=== PATIENT | female | born 1935 | race Caucasian/White ===

== ENCOUNTER 2020-01-02 16:42 | Inpatient (IN) ==
[2020-01-02] MEDS ORDERED: SODIUM CHLORIDE 0.9% 1000ML 500 ML IV ONE (17:07)
--- NOTE | 2020-01-02 17:25 | XRay Report ---
SINGLE VIEW CHEST CLINICAL HISTORY: Left-sided weakness. FINDINGS: An AP, portable, upright chest semierect is obtained No prior studies are available for fareed sharma at the time of dictation. The examination is degraded by portable technique, apical lordotic positioning, and patient rotation. The heart is enlarged noting atherosclerotic calcification of the thoracic aorta. The pulmonary vasculature is noncongested. Airspace consolidation is seen in the left lung base. No large pleural effusion or pneumothorax is seen. The skeletal structures are osteopenic . There are healed left-sided rib fractures. IMPRESSION: 1. Cardiomegaly without radiographic evidence of congestive failure. 2. Airspace consolidation is seen at the left lung base. This could represent atelectasis versus an i nfectious/inflammatory pneumonitis. Clinical correlation will be required. ACT 112: Negative or not required by law. Electronically signed by: Clay Rosado M.D. 01/02/2020 5:24 PM
[2020-01-02 18:09] LABS: Mean Corpuscular Hgb Conc 34.7 g/dL (32-36); Mean Platelet Volume 10.6 fL (7.4-10.4); Platelet Count 161 K/uL (130-400)
[2020-01-02 18:11] LABS: iSTAT Creatinine 0.4 mg/dl (0.6-1.3); iSTAT Hemoglobin 13.9 g/dl (12.0-16.0); iSTAT Ionized Calcium 1.14 mmol/l (1.12-1.32); iSTAT Potassium 3.6 mmol/L (3.3-5.0)
[2020-01-02 18:19] LABS: INR 1.1 (0.9-1.1); Partial Thromboplastin Time 28.4 Seconds (21.0-31.0); Prothrombin Time 11.7 Seconds (9.0-12.0)
[2020-01-02] MEDS ORDERED: OPTIRAY 320 125ml IV PRN (18:19)
[2020-01-02 18:40] LABS: Alanine Aminotransferase 24 U/L (12-78); Albumin Level 3.5 gm/dl (3.4-5.0); Aspartate Aminotransferase 25 U/L (15-37); BUN Creatinine Ratio 8.7 (10-20); Blood Urea Nitrogen 6 mg/dl (7-18); Calcium 8.9 mg/dl (8.5-10.1); Carbon Dioxide 27 mmol/L (21-32); Chloride 100 mmol/L (98-107); Creatinine Clr Calc Pharmacy 69.6 ml/min; Est GFR (African American) 94.9; Est GFR (Non-African American) 81.9; Glucose 210 mg/dl (70-99); Magnesium 1.9 mg/dl (1.8-2.4); Potassium 3.6 mmol/L (3.5-5.1); Sodium 134 mmol/L (136-145)
--- NOTE | 2020-01-02 18:40 | CT Scan Report ---
HEAD CT NONCONTRAST CT DOSE: HISTORY: Altered mental status. Stroke evaluation TECHNIQUE: Multiaxial CT images of the head were performed without the use of intravenous contrast. A utomated exposure control was utilized for this study. A dose lowering technique was utilized adheri ng to the principles of ALARA. Comparison: None. Findings: The paranasal sinuses and mastoid air cells are clear. The calvarium and skull base are int act. There is no mass, hematoma, midline shift, acute infarct. White matter hypodensity is nonspecifi c but suggestive of microvascular ischemic change. The ventricles and sulci demonstrate mild age-rela drew involutional changes. Hypodensity seen within the right frontal lobe measuring approximately 6 cm in size. This favors a subacute to chronic right MCA territory infarct. Old lacunar infarcts seen wi thin the left basal ganglia. There is no mass, hematoma, midline shift. 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 ACT 112: Negative or not required by law. Electronically signed by: Jean Govea M.D. 01/02/2020 6:39 PM
[2020-01-02 18:41] LABS: Hematocrit (blood only) 38.6 % (37-47); Hemoglobin 13.4 g/dL (12.0-16.0); Mean Corpuscular Volume 89.4 fL (80-100); RDW Standard Deviation 39.4 fL (36.4-46.3); Red Blood Count 4.32 M/uL (4.2-5.4); White Blood Count 14.76 K/uL (4.8-10.8)
[2020-01-02 18:44] LABS: ANC (manual) 9.42 K/uL (1.4-6.5); Lymphocytes % (manual) 3.4 %; Monocytes # (manual) 4.84 K/uL (0.11-0.59); Monocytes % (manual) 32.8 %; Neutrophils # (manual) 9.42 K/uL (1.4-6.5); Neutrophils % (manual) 63.8 %
[2020-01-02 18:45] LABS: Albumin Globulin Ratio 0.7 (0.9-2); Alkaline Phosphatase 81 U/L (45-117); Creatine Kinase 124 U/L (26-192); Globulin 4.7 gm/dl (2.5-4.0); Total Protein 8.2 gm/dl (6.4-8.2); Troponin I < 0.015 ng/ml (0-0.045)
--- NOTE | 2020-01-02 18:50 | CT Scan Report ---
HEAD & NECK CTA HISTORY: Altered mental status Stroke evaluation TECHNIQUE: Multiaxial CT images of the head were performed following the intravenous administration o f contrast to evaluate the major cerebral vessels. Multiaxial CT images of the neck were also perform ed following the intravenous administration of contrast to evaluate the major cervical vessels. Maxim um intensity projection images were also obtained. A dose lowering technique was utilized adhering to the principles of ALARA. COMPARISON: Head CT 01/02/2020. FINDINGS: Redemonstration of the 6 cm hypodense region within the right frontal lobe. This favors a subacute to chronic right MCA territory infarct. The major dural venous sinuses appear patent. Advanced atherosc lerotic plaque within the bilateral carotid siphons. Hypoplastic distal right vertebral artery. The d istal vertebral arteries, basilar artery, and bilateral intracranial internal carotid arteries are pa tent. Persistent right posterior circulation which is considered to be a normal variant. The bi lateral ACAs, wet process head miller, left MCA are widely patent. Focal high-grade stenosis involving a 1 cm segment of the proximal right M2 segment. This involves the superior branch and is best seen on image 93 of 245 . The aortic arch and proximal great vessels are widely patent. There is no significant stenosis, occ lusion, or dissection identified within the bilateral common carotid, internal carotid, or vertebral arteries. Faint patchy groundglass densities within the left upper lobe. Moderate calcified plaque wi thin the aortic arch. Mild to moderate calcified plaque within the bilateral carotid bifurcations. Sl ight irregular appearance of the bilateral mid vertebral arteries favors the tortuosity of the vessel s given the relative symmetry. IMPRESSION: 1. High-grade stenosis involving the proximal 1 cm of the superior division of the right M2 segment. This may account for the suspected right MCA territory subacute to chronic infarct. 2. No significant stenosis, occlusion, or dissection identified within the carotid or vertebral arter ies. 3. Faint patchy groundglass densities within the left upper lobe. This could represent a mild inflamm atory/infectious process such as a viral pneumonia. ACT 112: Negative or not required by law. Electronically signed by: Jean Govea M.D. 01/02/2020 6:49 PM
[2020-01-02 19:06] LABS: Appearance Urine Clear (Clear); Bacteria Urine Automated Negative (Negative); Bilirubin Urine Negative (Negative); Blood Urine Trace (Negative); Color Urine Yellow; Epithelial Cell Urine Auto >30 /lpf (0-5); Glucose Urine UA 3+ (Negative); Ketones Urine Trace (Negative); Leukocyte Esterase Urine Negative (Negative); Nitrite Urine Negative (Negative); Protein Urine Trace (Negative); RBC Urine Automated 0-4 /hpf (0-4); Specific Gravity Urine > 1.045 (1.000-1.030); Urobilinogen Urine Negative (Negative); pH Urine 6.5 (4.5-7.5)
[2020-01-02] MEDS ORDERED: PIPERACILLIN/TAZOBACTAM 4.5 GM/120 ML BAG IV ONE (19:25)
[2020-01-02] MEDS ORDERED: PIPERACILL/TAZOBAC CONSULT ACTIVE PRN (19:25)
[2020-01-02] MEDS ORDERED: LEVOFLOXACIN/D5W 750 MG/150 ML BAG IV SCH (19:30)
--- NOTE | 2020-01-02 20:44 | XRay Report ---
XR forearm LT 2V, XR humerus LT 2V CLINICAL HISTORY: Pt c/o left forearm pain. Left upper arm pain. COMPARISON STUDY: None. FINDINGS: Dorsal soft tissue swelling within the distal forearm. No fracture or dislocation within th e left humerus or left forearm. Vascular calcifications are noted. No radiopaque foreign bodies. IMPRESSION: No fracture or dislocation within the left humerus or left forearm. ACT 112: Negative or not required by law. Electronically signed by: Jean Govea M.D. 01/02/2020 8:43 PM
--- NOTE | 2020-01-02 21:03 | XRay Report ---
XR tibia fibula LT 2V, XR femur LT 2V routine, XR foot LT min 3V routine, XR pelvis 1-2V routine CLINICAL HISTORY: Pt c/o left foot pain. Pelvic pain. Left lower extremity pain. COMPARISON STUDY: None. FINDINGS: Contrast within the bladder from the recent CT examination. This partially obscures the sup erior pubic rami and distal sacrum. Otherwise, no fracture or dislocation within the pelvis or hips. The visualized sacrum appears intact. The bones are osteopenic. Severe cartilage space narrowing with [id number] articulation within the medial compartment of the knee. This is consistent with osteoar thritis. Vascular calcifications are noted. No radiopaque foreign bodies. Soft tissue swelling within the forefoot. No acute fracture or dislocation within the left femur, tibia, fibula. Small well-landen icated ossific density at the medial base of the proximal phalanx of the first toe. This likely repre sents an old avulsion fracture. Cortical step-off at the base of the third metatarsal consistent with a fracture. This may represent a Lisfranc fracture/dislocation. IMPRESSION: 1. Slightly displaced fracture at the base of the third metatarsal. This could represent a Lisfranc f racture/dislocation. Dedicated left foot CT is recommended for further evaluation. 2. No fracture or dislocation within the pelvis, hips, left femur, or left lower leg. ACT 112: Negative or not required by law. Electronically signed by: Jean Govea M.D. 01/02/2020 9:02 PM
--- NOTE | 2020-01-02 23:09 | History & Physical Report ---
Date of Service January 02, 2020 Assessment & Plan (1) CVA (cerebral vascular accident): Subacute/chronic right MCA CVA to right frontal lobe- CTA head/ neck with right M2 1 cm long high-grade stenosis CT of head with subacute/chronic right MCA CVA to the right frontal lobe. Admit to monitored bed with CVA protocol order set. NPO Consult PT/OT/speech therapy/neurology. Chewable aspirin 81 mg daily Order MRI brain without contrast. Order complete echocardiogram Order a hemoglobin A1c and fasting lipid panel Present on Admission?: Yes (2) Right middle cerebral artery stroke: See above Present on Admission?: Yes (3) Stenosis of right middle cerebral artery: See above Present on Admission?: Yes (4) Pneumonia of left lower lobe due to infectious organism: Probable aspiration. Zosyn 3.375 mg IV every 8 hours. Duonebs every 4 hours while awake and every 2 hours when necessary. Nasal cannula 2 L oxygen, titrate to keep pulse ox around 95% Consult speech therapy Present on Admission?: Yes (5) Hypertension: Allow permissive hypertension. Holding atenolol and lisinopril. Present on Admission?: Yes (6) Hyperlipidemia: Holding atorvastatin until passes swallow study/dysphagia screen Present on Admission?: Yes (7) Diabetes mellitus: Hold glipizide. Placed on Accu-Cheks before meals and at bedtime/every 6 hours with NovoLog coverage per scale Present on Admission?: Yes (8) GERD (gastroesophageal reflux disease): Famotidine 20 mg IV every 12 hours Present on Admission?: Yes (9) CAD (coronary artery disease), telida coronary artery: For now, holding antihypertensives and seed collector line medications as note d. Normal troponin, and no signs of cardiac involvement. We will order a 2D echocardiogram with Dopplers Present on Admission?: Yes (10) Metatarsal stress fracture of left foot: X-ray shows a slightly displaced fracture at the base of the third metatarsal. This could represent a Lisfranc fracture/dislocation. Dedicated left foot CT is recommended and will be ordered Present on Admission?: Yes (11) COVID-19 ruled out by laboratory testing: COVID-19 PCR testing was negative in the ED Present on Admission?: Yes History of Present Illness Chief Complaint: The patient is not able to contribute significantly to her HPI or review of systems, due to effects of CVA, and her daughter who is present, acts as primary historian. Primary Care Provider: NO PCP The patient is a 84-year-old female who was brought to the emergency department due to family concerns regarding altered mentation, weakness on left side, and a fall with swelling and distortion of left lower extremity. The patient himself is unable to contribute significantly to her review of system or HPI. The daughter who is present, reports that in retrospect, her mother was acting differently over the past several days, being more confused, eating less well, and having difficulty with ambulation. Allergies Allergy/AdvReac Type Severity Reaction Status Date / Time glimepiride Allergy Severe ELEVATED Verified 01/02/20 18:35 B/P TO STROKE-LIKE LEVEL carvedilol [From Coreg] AdvReac Severe HAD EVERY Verified 01/02/20 18:35 SIDE EFFECT MENTIONED. egg AdvReac Intermediate UPSET Verified 01/02/20 18:35 STOMACH metformin AdvReac Intermediate CONSTIPATIO Verified 01/02/20 18:35 N ARTIFICAL SWEETENERS Allergy Intermediate LIPS Uncoded 01/02/20 18:35 BECAME NUMB SALT SUBSTITUTE Allergy Intermediate LIPS Uncoded 01/02/20 18:35 BECAME NUMB Home Medications Home Medications Medication Instructions Recorded Confirmed Type aspirin [Aspir-81] 81 mg PO DAILY 01/02/20 01/02/20 History atenolol 25 mg PO DAILY 01/02/20 01/02/20 History atorvastatin [Lipitor] 20 mg PO HS 01/02/20 01/02/20 History famotidine 20 mg PO DAILY PRN 01/02/20 01/02/20 History glipizide [Glucotrol XL] 2.5 mg PO DAILY 01/02/20 01/02/20 History lisinopril 10 mg PO DAILY 01/02/20 01/02/20 History lorazepam 0.5 mg PO BID PRN 01/02/20 01/02/20 History nitroglycerin [Nitrolingual] 400 mcg SUBLINGUAL DIRECTED PRN 01/02/20 01/02/20 History Past Med/Surg History Medical History (Updated 01/02/20 @ 23:42 by Blair Noguera MD) Anxiety CAD (coronary artery disease), telida coronary artery Diabetes mellitus GERD (gastroesophageal reflux disease) Hyperlipidemia Hypertension Social History Smoking Status: Never smoker Review of Systems Review of Systems: Unobtainable due to cognitive status Her daughter does provide some information regarding HPI and review of systems Physical Exam Physical Exam: The patient is awake, mildly lethargic, normocephalic and atraumatic, lying in bed and in no acute distress. HEENT--PERRL, EOMI, mucous membranes and oropharynx dry. Neck--supple. No JVD. No bruits. Thyroid normal, trachea midline, no adenopathy. Heart--normal S1 and S2. No murmurs, rubs or gallops. Lungs--decreased breath sounds throughout. No respiratory distress, no accessory muscle use. Abdomen--normal bowel sounds and soft. Nontender. Nondistended. Extremities--RLE normal, LLE with mild edema and tenderness. Dermatologic--normal skin turgor, normal color, no abnormal lymph nodes, no rash. Neurologic/rheumatologic--weak LUE and LLE Psychiatric--mildly lethargic Results & Data Results & Data ([facility]) Vital Signs (Past 12 Hours) Vital Signs Temp Pulse Resp BP Pulse Ox 01/02/20 22:07 85 22 152/69 H 92 01/02/20 20:01 93 H 21 145/90 H 94 01/02/20 18:34 90 26 H 176/68 H 91 01/02/20 17:01 100 H 24 175/92 H 93 01/02/20 16:57 98.4 F 91 H 20 129/92 92 Laboratory Results Laboratory Results WBC 14.76 K/uL (4.8-10.8) H 01/02/20 17:50 RBC 4.32 M/uL (4.2-5.4) 01/02/20 17:50 Hgb 13.4 g/dL (12.0-16.0) 01/02/20 17:50 POC Hgb 13.9 g/dl (12.0-16.0) 01/02/20 18:00 Hct 38.6 % (37-47) 01/02/20 17:50 POC Hct 41 % (37-47) 01/02/20 18:00 MCV 89.4 fL (80-100) 01/02/20 17:50 MCH 31.0 pg (25-34) 01/02/20 17:50 MCHC 34.7 g/dL (32-36) 01/02/20 17:50 RDW Std Deviation 39.4 fL (36.4-46.3) 01/02/20 17:50 RDW Coeff of Linda 12.0 % (11.5-14.5) 01/02/20 17:50 Plt Count 161 K/uL (130-400) 01/02/20 17:50 MPV 10.6 fL (7.4-10.4) H 01/02/20 17:50 Neutrophils % (Manual) 63.8 % 01/02/20 17:50 Lymphocytes % (Manual) 3.4 % 01/02/20 17:50 Monocytes % (Manual) 32.8 % 01/02/20 17:50 Neutrophils # (Manual) 9.42 K/uL (1.4-6.5) H 01/02/20 17:50 Total Absolute Neuts 9.42 K/uL (1.4-6.5) H 01/02/20 17:50 Lymphocytes # (Manual) 0.50 K/uL (1.2-3.4) L 01/02/20 17:50 Total Abs Lymphocytes 0.50 K/uL (1.2-3.4) L 01/02/20 17:50 Monocytes # (Manual) 4.84 K/uL (0.11-0.59) H 01/02/20 17:50 PT 11.7 Seconds (9.0-12.0) 01/02/20 17:50 INR 1.1 (0.9-1.1) 01/02/20 17:50 APTT 28.4 Seconds (21.0-31.0) 01/02/20 17:50 PTT Ratio 1.0 01/02/20 17:50 POC Sodium 133 mmol/L (135-144) L 01/02/20 18:00 Sodium 134 mmol/L (136-145) L 01/02/20 17:50 POC Potassium 3.6 mmol/L (3.3-5.0) 01/02/20 18:00 Potassium 3.6 mmol/L (3.5-5.1) 01/02/20 17:50 POC Chloride 95 mmol/L (101-112) L 01/02/20 18:00 Chloride 100 mmol/L (98-107) 01/02/20 17:50 Carbon Dioxide 27 mmol/L (21-32) 01/02/20 17:50 POC Total CO2 24 mmol/L (24-31) 01/02/20 18:00 Anion Gap 7.0 (3-11) 01/02/20 17:50 POC Anion Gap 19.0 mmol/L (16-25) 01/02/20 18:00 POC BUN 5 mg/dl (7-18) L 01/02/20 18:00 BUN 6 mg/dl (7-18) L 01/02/20 17:50 Creatinine 0.67 mg/dl (0.6-1.2) 01/02/20 17:50 POC Creatinine 0.4 mg/dl (0.6-1.3) L 01/02/20 18:00 Est Cr Clr Drug Dosing 69.6 ml/min 01/02/20 17:50 Est GFR ( Amer) 94.9 01/02/20 17:50 Est GFR (Non-Af Amer) 81.9 01/02/20 17:50 BUN/Creatinine Ratio 8.7 (10-20) L 01/02/20 17:50 Glucose 210 mg/dl (70-99) H 01/02/20 17:50 POC Glucose (other) 224 mg/dl (70-99) H 01/02/20 18:00 Calcium 8.9 mg/dl (8.5-10.1) 01/02/20 17:50 POC Ioniz Calcium Parveen 1.14 mmol/l (1.12-1.32) 01/02/20 18:00 Magnesium 1.9 mg/dl (1.8-2.4) 01/02/20 17:50 Total Bilirubin 1.0 mg/dl (0.2-1) 01/02/20 17:50 AST 25 U/L (15-37) 01/02/20 17:50 ALT 24 U/L (12-78) 01/02/20 17:50 Alkaline Phosphatase 81 U/L (45-117) 01/02/20 17:50 Total Creatine Kinase 124 U/L (26-192) 01/02/20 17:50 Troponin I < 0.015 ng/ml (0-0.045) 01/02/20 17:50 Total Protein 8.2 gm/dl (6.4-8.2) 01/02/20 17:50 Albumin 3.5 gm/dl (3.4-5.0) 01/02/20 17:50 Globulin 4.7 gm/dl (2.5-4.0) H 01/02/20 17:50 Albumin/Globulin Ratio 0.7 (0.9-2) L 01/02/20 17:50 Urine Color Yellow 01/02/20 18:50 Urine Appearance Clear (Clear) 01/02/20 18:50 Urine pH 6.5 (4.5-7.5) 01/02/20 18:50 Ur Specific [place] > 1.045 (1.000-1.030) H 01/02/20 18:50 Urine Protein Trace (Negative) H 01/02/20 18:50 Urine Glucose (UA) 3+ (Negative) H 01/02/20 18:50 Urine Ketones Trace (Negative) H 01/02/20 18:50 Urine Blood Trace (Negative) H 01/02/20 18:50 Urine Nitrite Negative (Negative) 01/02/20 18:50 Urine Bilirubin Negative (Negative) 01/02/20 18:50 Urine Urobilinogen Negative (Negative) 01/02/20 18:50 Ur Leukocyte Esterase Negative (Negative) 01/02/20 18:50 Urine WBC (Auto) 1-5 /hpf (0-5) 01/02/20 18:50 Urine RBC (Auto) 0-4 /hpf (0-4) 01/02/20 18:50 U Hyaline Cast (Auto) 1-5 /lpf (0-5) 01/02/20 18:50 U Epithel Cells (Auto) >30 /lpf (0-5) H 01/02/20 18:50 Urine Bacteria (Auto) Negative (Negative) 01/02/20 18:50 Diagnostic Findings [facility], [place] [phone] XRay Report Patient: JEFF CIFUENTESDAAdmit Date: 01/02/20 MR#: [id number]: [address] Acct ID:[id number]: Date: [address] Zip: [place] [address] Age: 84Location: ED Sex: F Room/Bed: Att Phy:Diagnosis: WEAKNESS Mona Phy: PCP,NOService Date: 01/02/20 Fam Phy:Interpreting Phy: Clay Rosado MD Admit Phy: Ordering Phy: Chris Hu MD cc: ~ SINGLE VIEW CHEST CLINICAL HISTORY: Left-sided weakness. FINDINGS: An AP, portable, upright chest semierect is obtained No prior studies are available for comparison at the time of dictation. The examination is degraded by portable technique, apical lordotic positioning, and patient rotation. The heart is enlarged noting atherosclerotic calcification of the thoracic aorta. The pulmonary vasculature is noncongested. Airspace consolidation is seen in the left lung base. No large pleural effusion or pneumothorax is seen. The skeletal structures are osteopenic. There are healed left-sided rib fractures. IMPRESSION: 1. Cardiomegaly without radiographic evidence of congestive failure. 2. Airspace consolidation is seen at the left lung base. This could represent atelectasis versus an infectious/inflammatory pneumonitis. Clinical correlation will be required. ACT 112: Negative or not required by law. Electronically signed by: Clay Rosado M.D. 01/02/2020 5:24 PM Dictated: 01/02/20 1723 Transcribed: 01/02/20 1723 [place], [place] [phone] CT Scan Report Patient: TARIK CIFUENTESAdmit Date: 01/02/20 MR#: [id number]: [address] Acct ID:[id number]: Date: 1935[address] Zip: [place] [address] Age: 84Location: ED Sex: F Room/Bed: Att Phy:Diagnosis: WEAKNESS Mona Phy: PCP,NOService Date: 01/02/20 Eric Phy:Interpreting Phy: Jean Govea MD Admit Phy: Ordering Phy: Chris Hu MD cc: ~ HEAD CT NONCONTRAST CT DOSE: HISTORY: Altered mental status. Stroke evaluation TECHNIQUE: Multiaxial CT images of the head were performed without the use of intravenous contrast. Automated exposure control was utilized for this study. A dose lowering technique was utilized adhering to the principles of ALARA. Comparison: None. Findings: The paranasal sinuses and mastoid air cells are clear. The calvarium and skull base are intact. There is no mass, hematoma, midline shift, acute infarct. White matter hypodensity is nonspecific but suggestive of microvascular ischemic change. The ventricles and sulci demonstrate mild age-related involutional changes. Hypodensity seen within the right frontal lobe measuring approximately 6 cm in size. This favors a subacute to chronic right MCA territory infarct. Old lacunar infarcts seen within the left basal ganglia. There is no mass, hematoma, midline shift. 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 ACT 112: Negative or not required by law. Electronically signed by: Jean Govea M.D. 01/02/2020 6:39 PM Dictated: 01/02/201833 Transcribed: 01/02/201833 [place], [place] [phone] CT Scan Report Patient: TARIK CIFUENTESAdmit Date: 01/02/20 MR#: [id number]: [address] Acct ID:[id number]: Date: 1935[facility] Zip: [place] [address] Age: 84Location: ED Sex: F Room/Bed: Att Phy:Diagnosis: WEAKNESS Mona Phy: PCP,NOService Date: 01/02/20 [facility] Phy:Interpreting Phy: Jean Govea MD Admit Phy: Ordering Phy: Chris Hu MD cc: ~ HEAD & NECK CTA HISTORY: Altered mental status Stroke evaluation TECHNIQUE: Multiaxial CT images of the head were performed following the intravenous administration of contrast to evaluate the major cerebral vessels. Multiaxial CT images of the neck were also performed following the intravenous administration of contrast to evaluate the major cervical vessels. Maximum intensity projection images were also obtained. A dose lowering technique was utilized adhering to the principles of ALARA. COMPARISON: Head CT 01/02/2020. FINDINGS: Redemonstration of the 6 cm hypodense region within the right frontal lobe. This favors a subacute to chronic right MCA territory infarct. The major dural venous sinuses appear patent. Advanced atherosclerotic plaque within the bilateral carotid siphons. Hypoplastic distal right vertebral artery. The distal vertebral arteries, basilar artery, and bilateral intracranial internal carotid arteries are patent. Persistent right posterior circulation which is considered to be a normal variant. The bilateral ACAs, rn mds coordinator, left MCA are widely patent. Focal high-grade stenosis involving a 1 cm segment of the proximal right M2 segment. This involves the superior branch and is best seen on image 93 of 245. The aortic arch and proximal great vessels are widely patent. There is no significant stenosis, occlusion, or dissection identified within the bilateral common carotid, internal carotid, or vertebral arteries. Faint patchy groundglass densities within the left upper lobe. Moderate calcified plaque within the aortic arch. Mild to moderate calcified plaque within the bilateral carotid bifurcations. Slight irregular appearance of the bilateral mid vertebral arteries favors the tortuosity of the vessels given the relative symmetry. IMPRESSION: 1. High-grade stenosis involving the proximal 1 cm of the superior division of the right M2 segment. This may account for the suspected right MCA territory subacute to chronic infarct. 2. No significant stenosis, occlusion, or dissection identified within the carotid or vertebral arteries. 3. Faint patchy groundglass densities within the left upper lobe. This could represent a mild inflammatory/infectious process such as a viral pneumonia. ACT 112: Negative or not required by law. Electronically signed by: Jean Govea M.D. 01/02/2020 6:49 PM Dictated: 01/02/201838 Transcribed: 01/02/201838 [place], [place] [phone] XRay Report Patient: TARIK CIFUENTESAdmit Date: 01/02/20 MR#: [id number]: [address] Acct ID:[id number]: Date: 1935[address] Zip: [place] [address] Age: 84Location: ED Sex: F Room/Bed: Att Phy:Diagnosis: WEAKNESS Mona Phy: PCP,NOService Date: 01/02/20 [facility] Phy:Interpreting Phy: Jena Govea MD Admit Phy: Ordering Phy: Chris Hu MD cc: ~ XR tibia fibula LT 2V, XR femur LT 2V routine, XR foot LT min 3V routine, XR pelvis 1-2V routine CLINICAL HISTORY: Pt c/o left foot pain. Pelvic pain. Left lower extremity pain. COMPARISON STUDY: None. FINDINGS: Contrast within the bladder from the recent CT examination. This partially obscures the superior pubic rami and distal sacrum. Otherwise, no fracture or dislocation within the pelvis or hips. The visualized sacrum appears intact. The bones are osteopenic. Severe cartilage space narrowing with [id number] articulation within the medial compartment of the knee. This is consistent with osteoarthritis. Vascular calcifications are noted. No radiopaque foreign bodies. Soft tissue swelling within the forefoot. No acute fracture or dislocation within the left femur, tibia, fibula. Small well-corticated ossific density at the medial base of the proximal phalanx of the first toe. This likely represents an old avulsion fracture. Cortical step-off at the base of the third metatarsal consistent with a fracture. This may represent a Lisfranc fracture/dislocation. IMPRESSION: 1. Slightly displaced fracture at the base of the third metatarsal. This could represent a Lisfranc fracture/dislocation. Dedicated left foot CT is recommended for further evaluation. 2. No fracture or dislocation within the pelvis, hips, left femur, or left lower leg. ACT 112: Negative or not required by law. Electronically signed by: Jean Govea M.D. 01/02/2020 9:02 PM Dictated: 01/02/202029 Transcribed: 01/02/202038 [place], [place] [phone] XRay Report Patient: TARIK CIFUENTESAdmit Date: 01/02/20 MR#: [id number]: [address] Acct ID:[id number]: Date: 1935 Zip: [place] [address] Age: 84Location: ED Sex: F Room/Bed: Att Phy:Diagnosis: WEAKNESS Mona Phy: PCP,NOService Date: 01/02/20 [facility] Phy:Interpreting Phy: Jean Govea MD Admit Phy: Ordering Phy: Chris Hu MD cc: ~ XR forearm LT 2V, XR humerus LT 2V CLINICAL HISTORY: Pt c/o left forearm pain. Left upper arm pain. COMPARISON STUDY: None. FINDINGS: Dorsal soft tissue swelling within the distal forearm. No fracture or dislocation within the left humerus or left forearm. Vascular calcifications are noted. No radiopaque foreign bodies. IMPRESSION: No fracture or dislocation within the left humerus or left forearm. ACT 112: Negative or not required by law. Electronically signed by: Jean Govea M.D. 01/02/2020 8:43 PM Dictated: 01/02/202039 Transcribed: 01/02/202039 Code Status & VTE Plan Code Status full code VTE Prophylaxis Plan VTE Prophylaxis will be ordered: Yes PG Care Time/CCT Total # of Minutes Spent Total Time Spent with Patient: Total time spent is greater than 50% in coordination of care (as documented) at patient's floor/unit and/or counseling patient: Coding Level of Care Code 99822 Initial Inpt Care Lvl 3 Diagnoses CVA (cerebral vascular accident) I63.9 Right middle cerebral artery stroke I63.511 Stenosis of right middle cerebral artery I66.01 Pneumonia of left lower lobe due to infectious organism J18.9 Hypertension I10 Hyperlipidemia E78.5 Diabetes mellitus E11.9 GERD (gastroesophageal reflux disease) K21.9 CAD (coronary artery disease), telida coronary artery I25.10 Metatarsal stress fracture of left foot M84.375A COVID-19 ruled out by laboratory testing Z03.818
--- NOTE | 2020-01-03 00:05 | Emergency Department Note ---
History of Present Illness General Chief complaint: Weakness Time Seen by Provider: 01/02/20 16:46 Source: patient, family, EMS, RN notes reviewed and old records reviewed Mode of arrival: EMS Limitations: no limitations History of Present Illness Provider complaint: weakness 3 days ago Onset (ago): day(s) 3 Location: head Pain Consistency: + now resolved Current Pain Intensity: 0 Associated symptoms: + denies other symptoms Treatments prior to arrival: none This is an 84-year-old female who presents emergency department over concerns of the patient fell and injured her left foot. The family of the patient is concerned that she has been weaker than normal. They report that she has been weak for at least the last 2 weeks. In addition to this the patient has been having the left-sided weakness that has been ongoing for the past 3 days. Family was concerned they were unable to take care of the patient any further therefore they brought her to the emergency department. Home Medications Home Medications Medication Instructions Recorded Confirmed Type aspirin [Aspir-81] 81 mg PO DAILY 01/02/20 01/02/20 History atenolol 25 mg PO DAILY 01/02/20 01/02/20 History atorvastatin [Lipitor] 20 mg PO HS 01/02/20 01/02/20 History famotidine 20 mg PO DAILY PRN 01/02/20 01/02/20 History glipizide [Glucotrol XL] 2.5 mg PO DAILY 01/02/20 01/02/20 History lisinopril 10 mg PO DAILY 01/02/20 01/02/20 History lorazepam 0.5 mg PO BID PRN 01/02/20 01/02/20 History nitroglycerin [Nitrolingual] 400 mcg SUBLINGUAL DIRECTED PRN 01/02/20 01/02/20 History Allergies Allergy/AdvReac Type Severity Reaction Status Date / Time glimepiride Allergy Severe ELEVATED Verified 01/02/20 18:35 B/P TO STROKE-LIKE LEVEL carvedilol [From Coreg] AdvReac Severe HAD EVERY Verified 01/02/20 18:35 SIDE EFFECT MENTIONED. egg AdvReac Intermediate UPSET Verified 01/02/20 18:35 STOMACH metformin AdvReac Intermediate CONSTIPATIO Verified 01/02/20 18:35 N ARTIFICAL SWEETENERS Allergy Intermediate LIPS Uncoded 01/02/20 18:35 BECAME NUMB SALT SUBSTITUTE Allergy Intermediate LIPS Uncoded 01/02/20 18:35 BECAME NUMB Past Med/Surg History Medical History Anxiety CAD (coronary artery disease), robinson coronary artery Diabetes mellitus GERD (gastroesophageal reflux disease) Hyperlipidemia Hypertension Social History Beliefs That Will Affect Care: Cheondoism Cheondoism Beliefs: synagogue Current Living Situation: Family Feels Safe at Home: Yes Smoking Status: Never smoker Hx Alcohol Use: No Hx Substance Use: No Review of Systems A total of 10 systems reviewed and were otherwise negative Physical Exam Vital Signs Vital Signs - 24 hr 01/02/20 16:57 01/02/20 17:01 01/02/20 18:34 Temperature 36.9 C Temperature Source Oral Pulse Rate 91 H 100 H 90 Pulse Rate from SpO2 Sensor 90 Respiratory Rate 20 24 26 H Respiratory Effort / Characteristics Non-Labored Spontaneous Respiratory Depth Normal Blood Pressure 129/92 175/92 H 176/68 H Blood Pressure Mean 104 118 91 Pulse Oximetry 92 93 91 Oxygen Delivery Method Room Air Sepsis Recent Fever Within 48 Hours No Sepsis New/Unexplained Change in Mental Status No Sepsis Action Taken by Nursing No Action Required 01/02/20 20:01 Temperature Temperature Source Pulse Rate 93 H Pulse Rate from SpO2 Sensor Respiratory Rate 21 Respiratory Effort / Characteristics Respiratory Depth Blood Pressure 145/90 H Blood Pressure Mean 110 Pulse Oximetry 94 Oxygen Delivery Method Sepsis Recent Fever Within 48 Hours Sepsis New/Unexplained Change in Mental Status Sepsis Action Taken by Nursing VITAL SIGNS - Vital signs and nursing notes were reviewed. GENERAL - 84-year-old female appearing stated age who is in no acute distress. Communicates well with provider and answers questions appropriately. Rt sided facial droop SKIN - Without rashes. HEAD - NC/AT. EYES - PERRL with EOMI bilaterally. Sclera anicteric. Palpebral conjunctiva pink and moist with no injection noted. EARS - No deformities of external structures noted on gross examination bilaterally. No pain elicited with palpation of the tragus bilaterally. External auditory canals without discharge or otorrhea. Tympanic membranes pearly hansen without retraction or bulging. No fluid or purulent material visualized behind the TM. Handle of malleus, umbo, cone of light, pars tensa/flaccid all easily visualized. NOSE - Midline and without cyanosis. No epistaxis or purulent drainage noted. Septum midline without deviation or septal hematoma noted. MOUTH/OROPHARYNX - Without perioral cyanosis. Buccal mucosa pink and moist and without leukoplakia. Tongue midline with equal elevation of palate bilaterally. No tonsillar hypertrophy, erythema, or exudates noted. dentition noted. NECK - Neck with FROM. Supple to palpation. lymphadenopathy noted. No nuchal rigidity. LUNGS - Chest wall symmetric without accessory muscle use, intercostals r etractions, or central cyanosis. Normal vesicular breath sounds CTA B/L. No wheezes, rales, or rhonchi appreciated. CARDIAC - RRR with S1/S2. No murmur, rubs, or gallops appreciated. ABDOMEN - Abdominal contour without pulsations or visible masses. BS normoactive all four quadrants. No tenderness, palpable masses, hepatosplenomegaly, or ascites noted. EXTREMITIES - No clubbing or peripheral cyanosis. No pretibial edema present. +3/5 radial, posterior tibial, and dorsalis pedis pulses palpated throughout. +5/5 strength noted in UE/LE bilaterally. NEUROLOGIC - Cranial nerves II through XII grossly intact. Sensory intact to light touch throughout. Patellar reflexes +2/4. PSYCH - A&Ox3 and cooperates fully with examiner. Pt is very pleasant and interacts well with examiner. Course Administered Medications Levofloxacin/Dextrose (Levaquin/D5w) 750 mg in 150 mls @ 100 mls/hr IV Q24H NENITA Stop: 01/09/20 19:29 Last Infusion: 01/02/20 23:10 Dose: 0 mls/hr Documented by: [id number] Infusion: 01/02/20 21:23 Dose: 100 mls/hr Documented by: [id number] Infusion: 01/02/20 20:51 Dose: 0 mls/hr Documented by: [id number] Admin: 01/02/20 20:50 Dose: 100 mls/hr Documented by: [id number] Ioversol (Optiray 320 125ml) 118 ml IV ONCE PRN PRN Reason: Interaction Checking Stop: 01/06/20 18:18 Last Admin: 01/02/20 18:22 Dose: 118 ml Documented by: [id number] Discontinued Medications Sodium Chloride (Nss 1000ml) 500 mls @ 999 mls/hr IV .Q31M ONE Stop: 01/02/20 17:37 Last Infusion: 01/02/20 19:03 Dose: 0 mls/hr Documented by: [id number] Admin: 01/02/20 18:13 Dose: 999 mls/hr Documented by: [id number] Piperacillin Sod/Tazobactam Sod (Zosyn) 4.5 gm in 120 mls @ 240 mls/hr IV NOW ONE Stop: 01/02/20 19:54 Last Infusion: 01/02/20 21:22 Dose: 0 mls/hr Documented by: [id number] Admin: 01/02/20 20:50 Dose: 240 mls/hr Documented by: [id number] Medical Decision Making Differential Diagnosis Infection, dehydration, metabolic abnormality, hypo/hyperglycemia, electrolyte disturbance, anemia, hypoxia, cardiac sources, intracerebral event, toxicologic, neurologic, as well as other pathologies. Medical Records Attestation: I reviewed the patient's medical records. Home Medications Current Medication List: was personally reviewed by me Laboratory Data Attestation: I reviewed the patient's lab results. Result diagrams: 01/02/20 17:50 01/02/20 17:50 Lab Results 01/02/20 01/02/20 01/02/20 Range/Units 17:50 17:50 17:50 WBC 14.76 H (4.8-10.8) K/uL RBC 4.32 (4.2-5.4) M/uL Hgb 13.4 (12.0-16.0) g/dL POC Hgb (12.0-16.0) g/dl Hct 38.6 (37-47) % POC Hct (37-47) % MCV 89.4 (80-100) fL MCH 31.0 (25-34) pg MCHC 34.7 (32-36) g/dL RDW Std Deviation 39.4 (36.4-46.3) fL RDW Coeff of Linda 12.0 (11.5-14.5) % Plt Count 161 (130-400) K/uL MPV 10.6 H (7.4-10.4) fL Neutrophils % (Manual) 63.8 % Lymphocytes % (Manual) 3.4 % Monocytes % (Manual) 32.8 % Neutrophils # (Manual) 9.42 H (1.4-6.5) K/uL Total Absolute Neuts 9.42 H (1.4-6.5) K/uL Lymphocytes # (Manual) 0.50 L (1.2-3.4) K/uL Total Abs Lymphocytes 0.50 L (1.2-3.4) K/uL Monocytes # (Manual) 4.84 H (0.11-0.59) K/uL PT 11.7 (9.0-12.0) Seconds INR 1.1 (0.9-1.1) APTT 28.4 (21.0-31.0) Seconds PTT Ratio 1.0 POC Sodium (135-144) mmol/L Sodium 134 L (136-145) mmol/L POC Potassium (3.3-5.0) mmol/L Potassium 3.6 (3.5-5.1) mmol/L POC Chloride (101-112) mmol/L Chloride 100 (98-107) mmol/L Carbon Dioxide 27 (21-32) mmol/L POC Total CO2 (24-31) mmol/L Anion Gap 7.0 (3-11) POC Anion Gap (16-25) mmol/L POC BUN (7-18) mg/dl BUN 6 L (7-18) mg/dl Creatinine 0.67 (0.6-1.2) mg/dl POC Creatinine (0.6-1.3) mg/dl Est Cr Clr Drug Dosing 69.6 ml/min Est GFR ( Amer) 94.9 Est GFR (Non-Af Amer) 81.9 BUN/Creatinine Ratio 8.7 L (10-20) Glucose 210 H (70-99) mg/dl POC Glucose (other) (70-99) mg/dl Calcium 8.9 (8.5-10.1) mg/dl POC Ioniz Calcium Parveen (1.12-1.32) mmol/l Magnesium 1.9 (1.8-2.4) mg/dl Total Bilirubin 1.0 (0.2-1) mg/dl AST 25 (15-37) U/L ALT 24 (12-78) U/L Alkaline Phosphatase 81 (45-117) U/L Total Creatine Kinase 124 (26-192) U/L Troponin I < 0.015 (0-0.045) ng/ml Total Protein 8.2 (6.4-8.2) gm/dl Albumin 3.5 (3.4-5.0) gm/dl Globulin 4.7 H (2.5-4.0) gm/dl Albumin/Globulin Ratio 0.7 L (0.9-2) Urine Color Urine Appearance (Clear) Urine pH (4.5-7.5) Ur Specific [place] (1.000-1.030) Urine Protein (Negative) Urine Glucose (UA) (Negative) Urine Ketones (Negative) Urine Blood (Negative) Urine Nitrite (Negative) Urine Bilirubin (Negative) Urine Urobilinogen (Negative) Ur Leukocyte Esterase (Negative) Urine WBC (Auto) (0-5) /hpf Urine RBC (Auto) (0-4) /hpf U Hyaline Cast (Auto) (0-5) /lpf U Epithel Cells (Auto) (0-5) /lpf Urine Bacteria (Auto) (Negative) COVID-19 PCR (Negative) 01/02/20 01/02/20 01/02/20 Range/Units 18:00 18:50 20:00 WBC (4.8-10.8) K/uL RBC (4.2-5.4) M/uL Hgb (12.0-16.0) g/dL POC Hgb 13.9 (12.0-16.0) g/dl Hct (37-47) % POC Hct 41 (37-47) % MCV (80-100) fL MCH (25-34) pg MCHC (32-36) g/dL RDW Std Deviation (36.4-46.3) fL RDW Coeff of Linda (11.5-14.5) % Plt Count (130-400) K/uL MPV (7.4-10.4) fL Neutrophils % (Manual) % Lymphocytes % (Manual) % Monocytes % (Manual) % Neutrophils # (Manual) (1.4-6.5) K/uL Total Absolute Neuts (1.4-6.5) K/uL Lymphocytes # (Manual) (1.2-3.4) K/uL Total Abs Lymphocytes (1.2-3.4) K/uL Monocytes # (Manual) (0.11-0.59) K/uL PT (9.0-12.0) Seconds INR (0.9-1.1) APTT (21.0-31.0) Seconds PTT Ratio POC Sodium 133 L (135-144) mmol/L Sodium (136-145) mmol/L POC Potassium 3.6 (3.3-5.0) mmol/L Potassium (3.5-5.1) mmol/L POC Chloride 95 L (101-112) mmol/L Chloride (98-107) mmol/L Carbon Dioxide (21-32) mmol/L POC Total CO2 24 (24-31) mmol/L Anion Gap (3-11) POC Anion Gap 19.0 (16-25) mmol/L POC BUN 5 L (7-18) mg/dl BUN (7-18) mg/dl Creatinine (0.6-1.2) mg/dl POC Creatinine 0.4 L (0.6-1.3) mg/dl Est Cr Clr Drug Dosing ml/min Est GFR ( Amer) Est GFR (Non-Af Amer) BUN/Creatinine Ratio (10-20) Glucose (70-99) mg/dl POC Glucose (other) 224 H (70-99) mg/dl Calcium (8.5-10.1) mg/dl POC Ioniz Calcium Parveen 1.14 (1.12-1.32) mmol/l Magnesium (1.8-2.4) mg/dl Total Bilirubin (0.2-1) mg/dl AST (15-37) U/L ALT (12-78) U/L Alkaline Phosphatase (45-117) U/L Total Creatine Kinase (26-192) U/L Troponin I (0-0.045) ng/ml Total Protein (6.4-8.2) gm/dl Albumin (3.4-5.0) gm/dl Globulin (2.5-4.0) gm/dl Albumin/Globulin Ratio (0.9-2) Urine Color Yellow Urine Appearance Clear (Clear) Urine pH 6.5 (4.5-7.5) Ur Specific [place] > 1.045 H (1.000-1.030) Urine Protein Trace H (Negative) Urine Glucose (UA) 3+ H (Negative) Urine Ketones Trace H (Negative) Urine Blood Trace H (Negative) Urine Nitrite Negative (Negative) Urine Bilirubin Negative (Negative) Urine Urobilinogen Negative (Negative) Ur Leukocyte Esterase Negative (Negative) Urine WBC (Auto) 1-5 (0-5) /hpf Urine RBC (Auto) 0-4 (0-4) /hpf U Hyaline Cast (Auto) 1-5 (0-5) /lpf U Epithel Cells (Auto) >30 H (0-5) /lpf Urine Bacteria (Auto) Negative (Negative) COVID-19 PCR NEGATIVE (Negative) Imaging Data Radiologist's Impression: [facility], [place] [phone] XRay Report Patient: TARIK CIFUENTESAdmit Date: 01/02/20 MR#: [id number]: [address] Acct ID:[id number]: Date: 1935[facility] Zip: [place] [address] Age: 84Location: ED Sex: F Room/Bed: Att Phy:Diagnosis: WEAKNESS Mona Phy: PCP,NOService Date: 01/02/20 Fam Phy:Interpreting Phy: Clay Rosado MD Admit Phy: Ordering Phy: Chris Hu MD cc: ~ SINGLE VIEW CHEST CLINICAL HISTORY: Left-sided weakness. FINDINGS: An AP, portable, upright chest semierect is obtained No prior studies are available for comparison at the time of dictation. The examination is degraded by portable technique, apical lordotic positioning, and patient rotation. The heart is enlarged noting atherosclerotic calcification of the thoracic aorta. The pulmonary vasculature is noncongested. Airspace consolidation is seen in the left lung base. No large pleural effusion or pneumothorax is seen. The skeletal structures are osteopenic. There are healed left-sided rib fractures. IMPRESSION: 1. Cardiomegaly without radiographic evidence of congestive failure. 2. Airspace consolidation is seen at the left lung base. This could represent atelectasis versus an infectious/inflammatory pneumonitis. Clinical correlation will be required. ACT 112: Negative or not required by law. Electronically signed by: Clay Rosado M.D. 01/02/2020 5:24 PM Dictated: 01/02/201722 Transcribed: 01/02/201722 [facility], [place] [phone] CT Scan Report Patient: TARIK CIFUENTESAdmit Date: 01/02/20 MR#: [id number]: [address] Acct ID:[id number]: Date: 1935 Zip: [place] [address] Age: 84Location: ED Sex: F Room/Bed: Att Phy:Diagnosis: WEAKNESS Mona Phy: PCP,NOService Date: 01/02/20 Fam Phy:Interpreting Phy: Jean Govea MD Admit Phy: Ordering Phy: Chris Hu MD cc: ~ HEAD CT NONCONTRAST CT DOSE: HISTORY: Altered mental status. Stroke evaluation TECHNIQUE: Multiaxial CT images of the head were performed without the use of intravenous contrast. Automated exposure control was utilized for this study. A dose lowering technique was utilized adhering to the principles of ALARA. Comparison: None. Findings: The paranasal sinuses and mastoid air cells are clear. The calvarium and skull base are intact. There is no mass, hematoma, midline shift, acute infarct. White matter hypodensity is nonspecific but suggestive of microvascular ischemic change. The ventricles and sulci demonstrate mild age-related involutional changes. Hypodensity seen within the right frontal lobe measuring approximately 6 cm in size. This favors a subacute to chronic right MCA territory infarct. Old lacunar infarcts seen within the left basal ganglia. There is no mass, hematoma, midline shift. 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 ACT 112: Negative or not required by law. Electronically signed by: Jean Govea M.D. 01/02/2020 6:39 PM Dictated: 01/02/201833 Transcribed: 01/02/201833 [facility], [place] [phone] CT Scan Report Patient: TARIK CIFUENTESAdmit Date: 01/02/20 MR#: [id number]: [address] Acct ID:[id number]: Date: 1935 Zip: [place] [address] Age: 84Location: ED Sex: F Room/Bed: Att Phy:Diagnosis: WEAKNESS Mona Phy: PCP,NOService Date: 01/02/20 Eric Phy:Interpreting Phy: Jean Govea MD Admit Phy: Ordering Phy: Chris Hu MD cc: ~ HEAD & NECK CTA HISTORY: Altered mental status Stroke evaluation TECHNIQUE: Multiaxial CT images of the head were performed following the intravenous administration of contrast to evaluate the major cerebral vessels. Multiaxial CT images of the neck were also performed following the intravenous administration of contrast to evaluate the major cervical vessels. Maximum intensity projection images were also obtained. A dose lowering technique was utilized adhering to the principles of ALARA. COMPARISON: Head CT 01/02/2020. FINDINGS: Redemonstration of the 6 cm hypodense region within the right frontal lobe. This favors a subacute to chronic right MCA territory infarct. The major dural venous sinuses appear patent. Advanced atherosclerotic plaque within the bilateral carotid siphons. Hypoplastic distal right vertebral artery. The distal vertebral arteries, basilar artery, and bilateral intracranial internal carotid arteries are patent. Persistent right posterior circulation which is considered to be a normal variant. The bilateral ACAs, manager resort, left MCA are widely patent. Focal high-grade stenosis involving a 1 cm segment of the proximal right M2 segment. This involves the superior branch and is best seen on image 93 of 245. The aortic arch and proximal great vessels are widely patent. There is no si gnificant stenosis, occlusion, or dissection identified within the bilateral common carotid, internal carotid, or vertebral arteries. Faint patchy groundglass densities within the left upper lobe. Moderate calcified plaque within the aortic arch. Mild to moderate calcified plaque within the bilateral carotid bifurcations. Slight irregular appearance of the bilateral mid vertebral arteries favors the tortuosity of the vessels given the relative symmetry. IMPRESSION: 1. High-grade stenosis involving the proximal 1 cm of the superior division of the right M2 segment. This may account for the suspected right MCA territory subacute to chronic infarct. 2. No significant stenosis, occlusion, or dissection identified within the carotid or vertebral arteries. 3. Faint patchy groundglass densities within the left upper lobe. This could represent a mild inflammatory/infectious process such as a viral pneumonia. ACT 112: Negative or not required by law. Electronically signed by: Jean Govea M.D. 01/02/2020 6:49 PM Dictated: 01/02/201838 Transcribed: 01/02/201838 [place], [place] [phone] CT Scan Report Patient: Lindsey CIFUENTESit Date: 01/02/20 MR#: [id number]: [address] Acct ID:[id number]: Date: 1935City Zip: [place] [address] Age: 84Location: ED Sex: F Room/Bed: Att Phy:Diagnosis: WEAKNESS Mona Phy: PCP,NOService Date: 01/02/20 Fam Phy:Interpreting Phy: Jean Govea MD Admit Phy: Ordering Phy: Chris Hu MD cc: ~ HEAD & NECK CTA HISTORY: Altered mental status Stroke evaluation TECHNIQUE: Multiaxial CT images of the head were performed following the intrav enous administration of contrast to evaluate the major cerebral vessels. Multiaxial CT images of the neck were also performed following the intravenous administration of contrast to evaluate the major cervical vessels. Maximum intensity projection images were also obtained. A dose lowering technique was utilized adhering to the principles of ALARA. COMPARISON: Head CT 01/02/2020. FINDINGS: Redemonstration of the 6 cm hypodense region within the right frontal lobe. This favors a subacute to chronic right MCA territory infarct. The major dural venous sinuses appear patent. Advanced atherosclerotic plaque within the bilateral carotid siphons. Hypoplastic distal right vertebral artery. The distal vertebral arteries, basilar artery, and bilateral intracranial internal carotid arteries are patent. Persistent right posterior circulation which is considered to be a normal variant. The bilateral ACAs, manager resort, left MCA are widely patent. Focal high-grade stenosis involving a 1 cm segment of the proximal right M2 segment. This involves the superior branch and is best seen on image 93 of 245. The aortic arch and proximal great vessels are widely patent. There is no significant stenosis, occlusion, or dissection identified within the bilateral common carotid, internal carotid, or vertebral arteries. Faint patchy groundglass densities within the left upper lobe. Moderate calcified plaque within the aortic arch. Mild to moderate calcified plaque within the bilateral carotid bifurcations. Slight irregular appearance of the bilateral mid vertebral arteries favors the tortuosity of the vessels given the relative symmetry. IMPRESSION: 1. High-grade stenosis involving the proximal 1 cm of the superior division of the right M2 segment. This may account for the suspected right MCA territory subacute to chronic infarct. 2. No significant stenosis, occlusion, or dissection identified within the carotid or vertebral arteries. 3. Faint patchy groundglass densities within the left upper lobe. This could represent a mild inflammatory/infectious process such as a viral pneumonia. ACT 112: Negative or not required by law. Electronically signed by: Jean Govea M.D. 01/02/2020 6:49 PM Dictated: 01/02/201838 Transcribed: 01/02/201838 [place], [place] [phone] XRay Report Patient: TARIK CIFUENTESAdmit Date: 01/02/20 MR#: [id number]: [address] Acct ID:[id number]: Date: 1935[facility] Zip: [place] [address] Age: 84Location: ED Sex: F Room/Bed: Att Phy:Diagnosis: WEAKNESS Mona Phy: PCP,NOService Date: 01/02/20 Fam Phy:Interpreting Phy: Jean Govea MD Admit Phy: Ordering Phy: Chris Hu MD cc: ~ XR tibia fibula LT 2V, XR femur LT 2V routine, XR foot LT min 3V routine, XR pelvis 1-2V routine CLINICAL HISTORY: Pt c/o left foot pain. Pelvic pain. Left lower extremity pain. COMPARISON STUDY: None. FINDINGS: Contrast within the bladder from the recent CT examination. This partially obscures the superior pubic rami and distal sacrum. Otherwise, no fracture or dislocation within the pelvis or hips. The visualized sacrum appears intact. The bones are osteopenic. Severe cartilage space narrowing with [id number] articulation within the medial compartment of the knee. This is consistent with osteoarthritis. Vascular calcifications are noted. No radiopaque foreign bodies. Soft tissue swelling within the forefoot. No acute fracture or dislocation within the left femur, tibia, fibula. Small well-corticated ossific density at the medial base of the proximal phalanx of the first toe. This likely represents an old avulsion fracture. Cortical step-off at the base of the third metatarsal consistent with a fracture. This may represent a Lisfranc fracture/ dislocation. IMPRESSION: 1. Slightly displaced fracture at the base of the third metatarsal. This could represent a Lisfranc fracture/dislocation. Dedicated left foot CT is recommended for further evaluation. 2. No fracture or dislocation within the pelvis, hips, left femur, or left lower leg. ACT 112: Negative or not required by law. Electronically signed by: Jean Govea M.D. 01/02/2020 9:[address] [facility], [place] [phone] XRay Report Patient: TARIK CIFUENTESAdmit Date: 01/02/20 MR#: [id number]: [address] Acct ID:[id number]: Date: 1935 Zip: [place] [address] Age: 84Location: ED Sex: F Room/Bed: Att Phy:Diagnosis: WEAKNESS Mona Phy: PCP,NOService Date: 01/02/20 Fam Phy:Interpreting Phy: Jean Govea MD Admit Phy: Ordering Phy: Chris Hu MD cc: ~ XR forearm LT 2V, XR humerus LT 2V CLINICAL HISTORY: Pt c/o left forearm pain. Left upper arm pain. COMPARISON STUDY: None. FINDINGS: Dorsal soft tissue swelling within the distal forearm. No fracture or dislocation within the left humerus or left forearm. Vascular calcifications are noted. No radiopaque foreign bodies. IMPRESSION: No fracture or dislocation within the left humerus or left forearm. ACT 112: Negative or not required by law. Electronically signed by: Jean Govea M.D. 01/02/2020 8:43 PM Dictated: 01/02/202039 Transcribed: 01/02/202039 [facility], [place] [phone] XRay Report Patient: TARIK CIFUENTESAdmit Date: 01/02/20 MR#: [id number]: [address] Acct ID:[id number]: Date: 1935 Zip: [place] [address] Age: 84Location: ED Sex: F Room/Bed: Att Phy:Diagnosis: WEAKNESS Mona Phy: PCP,NOService Date: 01/02/20 Fam Phy:Interpreting Phy: Jean Govea MD Admit Phy: Ordering Phy: Chris Hu MD cc: ~ XR forearm LT 2V, XR humerus LT 2V CLINICAL HISTORY: Pt c/o left forearm pain. Left upper arm pain. COMPARISON STUDY: None. FINDINGS: Dorsal soft tissue swelling within the distal forearm. No fracture or dislocation within the left humerus or left forearm. Vascular calcifications are noted. No radiopaque foreign bodies. IMPRESSION: No fracture or dislocation within the left humerus or left forearm. ACT 112: Negative or not required by law. Electronically signed by: Jean Govea M.D. 01/02/2020 8:43 PM Dictated: 01/02/202039 Transcribed: 01/02/202039 ECG Data Attestation: I personally reviewed and interpreted this ECG as follows: Indication: + altered mental status Rate (beats per minute): 89 ECG Intervals/blocks: + Left bundle branch block and + Normal QT-c (496) ECG [place]: + Left axis deviation ECG ST segments: no ST depression and no ST elevation Comparison ECG Date: no prior available Blood Pressure Blood Pressure Findings: Elevated blood pressure Blood Pressure Disposition: elevated BP felt to be situational MDM Narrative This is an 84-year-old female who presents emergency department complaining of left-sided weakness. The weakness has been ongoing for 3 days therefore I did not consider this patient a TPA candidate. She was sent for CTA of the head which was concerning for right MCA infarct. I believe this would be consistent with the patient's symptoms. I am also concerned that the patient may have aspirated as a result of the stroke. Because of this the patient was started on broad-spectrum antibiotics. Her x-rays are concerning for a metatarsal fracture . Because of the multiple issues I did discuss the case with the hospitalist service who did agreed admit the patient. The patient does have an elevation in her white blood cell count. Family is in agreement with the treatment plan. Patient was seen and evaluated as above in room B4. Review was performed of nursing notes and vital signs. I did review pertinent previous visits and patient history. After obtaining a thorough history and physical examination the above work up was performed. While in the department, I personally reevaluated the patient several times and each time the patient was found to be resting comfortably. The patient was educated upon management, educated upon todays findings/results, educated upon importance of follow up from today's visit, educated upon symptoms in which to return, had questions answered prior to discharge, verbalized understanding, and was discharged home in good condition. An order was placed for continuous cardiac monitoring. The monitor shows a rate of 82 with Normal Sinus rhythm. The patient was evaluated during the global COVID-19 pandemic, and that diagnosis was suspected/considered upon their initial presentation. Their laverne luation, treatment and testing was consistent with current guidelines for patients who present with complaints or symptoms that may be related to COVID- 19. Impression & Plan Metatarsal stress fracture of left foot, Pneumonia of left lower lobe due to infectious organism, Stenosis of right middle cerebral artery, Right middle cerebral artery stroke Discharge Plan Visit Data *Final* Discharge Date/Time: 01/02/20 23:43 Chief Complaint: Weakness ED Provider: Chris Hu Discharge Problem: Metatarsal stress fracture of left foot, Pneumonia of left lower lobe due to infectious organism, Stenosis of right middle cerebral artery, Right middle cerebral artery stroke Patient Disposition: Admitted As Inpatient Discharge Problem: Metatarsal stress fracture of left foot Qualifiers: Encounter type: initial encounter Qualified Code(s): M84.375A - Stress fracture, left foot, initial encounter for fracture
[2020-01-03] MEDS ORDERED: DEXTROSE 50% 50 ML SYRINGE IV PRN (00:19)
[2020-01-03] MEDS ORDERED: ONDANSETRON INJ 2 MG/ML 2 ML VIAL IV PRN (00:19)
[2020-01-03] MEDS ORDERED: PIPERACILL/TAZOBAC CONSULT ACTIVE PRN (00:19)
[2020-01-03] MEDS ORDERED: GLUCOSE 10 TABS/TUBE PO PRN (00:19)
[2020-01-03] MEDS ORDERED: GLUCOSE 40% GEL 15 GM TUBE PO PRN (00:19)
[2020-01-03] MEDS ORDERED: GLUCAGON FOR INJ 1 MG VIAL SQ PRN (00:19)
[2020-01-03] MEDS ORDERED: CARBOHYDRATES FOR HYPOGLYCEMIA PO PRN (00:19)
[2020-01-03] MEDS ORDERED: PHARMACIST DISCHARGE MED REC CONSULT PRN (00:19)
[2020-01-03] MEDS: FAMOTIDINE 20 MG in SYRINGE 3 ML IV SCH ×2 (00:27→12:30)
[2020-01-03] MEDS ORDERED: LORazepam 1 MG/2 ML VIAL IV STA (01:33)
[2020-01-03] MEDS: NSS + 20MEQ KCL 20 MEQ/1,000 ML BAG IV SCH ×3 (01:56→22:35)
[2020-01-03] MEDS ORDERED: MICONAZOLE NITRATE POWDER 43 GM EXT PRN (02:10)
[2020-01-03] MEDS: PIPERACILLIN/TAZOBACTAM 3.375 GM in DEXTROSE 5% 100 ML IV SCH ×3 (03:41→18:14)
[2020-01-03] MEDS: INSULIN ASPART 100 UNITS/ML 3 ML PEN SC SCH ×5 (03:52→20:52)
[2020-01-03] MEDS: ALBUT/IPRATROP 3MG/0.5MG NEB 3 ML VIAL NEB SCH ×4 (07:11→19:28)
--- NOTE | 2020-01-03 07:31 | CT Scan Report ---
CT foot LT wo con CT DOSE: CLINICAL HISTORY: Pain status post trauma abnormal x-ray with possible Lisfranc injury. TECHNIQUE: Helical images were acquired in the transverse plane. The study is slightly limited from a technical standpoint due to motion artifact. A dose lowering technique was utilized adhering to the principles of ALARA. COMPARISON STUDY: X-ray study dated 01/02/2020 FINDINGS: The bones are osteopenic. There is a distal fibular fracture. There is an intra-articular fracture involving the medial base of the proximal phalanx of the great t oe. There are transverse fractures of the proximal second and third metatarsals. There is no CT evidence of tarsometatarsal subluxation. IMPRESSION: 1. Distal fibular fracture 2. Transverse fractures of the proximal second and third metatarsals. No CT evidence of tarsometatars al subluxation 3. Intra-articular fracture involving the medial base of the proximal phalanx the great toe ACT 112: Negative or not required by law. Electronically signed by: Anival Sandoval M.D. 01/03/2020 7:30 AM
--- NOTE | 2020-01-03 07:38 | Magnetic Resonance Report ---
MRI OF THE BRAIN WITHOUT CONTRAST CLINICAL HISTORY: Acute stroke. COMPARISON STUDY: CT scan dated 01/02/2020 FINDINGS: Sagittal T1, axial diffusion, proton density and T2 weighted axial, coronal FLAIR, and axial T1-weigh drew images were acquired. No intra or extra-axial mass lesions are visualized There is a 7 cm area of restricted water diffusion involving the right frontal lobe consistent with a n acute/subacute infarct. There is no evidence of ventricular dilatation. Proton density T2-weighted and FLAIR images reveal scattered foci of increased T2 signal within the w brannon matter, likely on a small vessel basis. There is increased FLAIR signal within the right frontal lobe localizing to the area of restricted water diffusion indicating an infarct. There is an old lef t basal ganglia lacunar infarct. There are no abnormal flow voids. IMPRESSION: Acute/subacute right frontal lobe infarct. ACT 112: Negative or not required by law. Electronically signed by: Anival Sandoval M.D. 01/03/2020 7:36 AM
--- NOTE | 2020-01-03 07:45 | Hospitalist Progress Note ---
Date of Service January 03, 2020 Assessment & Plan (1) CVA (cerebral vascular accident): 84 yo F PMHx DM2, HTN, HLD, GERD, anxiety admitted for R frontal lobe acute/subacute CVA, with fall prior to admission causing multiple LLE fractures. Acute/subacute right MCA CVA to right frontal lobe: - CTA head/ neck with right M2 1 cm long high-grade stenosis - CT of head with subacute/chronic right MCA CVA to the right frontal lobe. - MRI w/o contrast showed acute/subacute right frontal lobe infarct. - After Speech evaluation has been cleared for pureed diet while awake and with head of bed elevation. - Hemoglobin A1c: 7.6 on admission. - Fasting lipid panel: total cholesterol 170, LDL 105, HDL 55, TG 50. - PT/OT to be performed after seen by Ortho; will likely need left non- weightbearing for some time. - Neurology consulted and appreciate recommendations: - discontinue aspirin for Plavix. - optimize risk factor control (HLD, HTN, DM2). - Echo pending. - Patient's family express that their and the patient's wishes are to return home following discharge. Home services okay. LLE multiple fractures: - L Foot XR showed 3rd metatarsal fracture. - LLE CT performed which showed L distal fibular fracture, 2nd/3rd metatarsal fractures, and great toe fracture. - Ortho consult placed, appreciate recommendations. - Patient without pain at this time. Hold PT/OT until seen by Ortho. Pneumonia of left lower lobe due to infectious organism: - Likely 2/2 aspiration given poor feeding tolerance with Speech therapy. Cleared for pureed diet only when awake with head of bed elevated. - Continue Zosyn, d/c levaquin. - Duonebs every 4 hours while awake and every 2 hours when necessary. - Nasal cannula 2 L oxygen, wean as tolerated. - COVID-19 PCR testing was negative in the ED. Hypertension: - Allow permissive hypertension. - Resume HTN medications as able after allowing for permissive HTN. Hyperlipidemia: - Lipid panel performed as above. - Resume atorvastatin 20mg daily. Diabetes mellitus: - Hgb A1c 7.6 as above. - Hold oral agents. SSI as below: Goal BSG Range: Low 100 mg/dL, High 150_mg/dL Correction Factor: 25 mg/dL/unit INS:CHO Ratio: 1unit per 10 gms CHO consumed BSGs ACHS if eating, q6h if npo - Per Neurology will need tighter BSG control on discharge to prevent further CVA events. GERD (gastroesophageal reflux disease): - Famotidine 20 mg PO daily. CAD (coronary artery disease), [place] coronary artery: - Normal troponin, and no signs of cardiac involvement. - 2D Echo pending as above. 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: (4) Pneumonia of left lower lobe due to infectious organism: (5) Hypertension: (6) Hyperlipidemia: (7) Diabetes mellitus: (8) GERD (gastroesophageal reflux disease): (9) CAD (coronary artery disease), [place] coronary artery: (10) Anxiety: (11) Left fibular fracture: (12) Metatarsal stress fracture of left foot: (13) COVID-19 ruled out by laboratory testing: Admission and Anticipated Discharge Date Admission Date: January 02, 2020 Supervising Physician Co-Signing Physician Notes I also saw the patient independent of the resident physician and confirmed basurto portions of history and physical examination. I also discussed the admission and overnight studies, laboratory findings with one of her three daughters who was at bedside earlier this morning. I agree with the impression and plan as noted in the resident documentation. I was also notified by the floor that she had a short run of apparent SVT on telemetry. Subsequent EKG showed wide complex tachycardia with PVCs. Upon reassessment shortly thereafter, the patient was noted to be in a sinus tachycardia with a rate between 70 and 80. Her beta-april, which had been held upon admission, was ordered. Tachycardia Resolved with reduction of home beta-april Replete potassium Monitor serum potassium and magnesium Right middle cerebral artery stroke Neurology consultation appreciated. Echocardiogram pending. Left fibular fracture, left metatarsal fracture Consult orthopedics Subjective Patient without acute events overnight. Unable to gather much history due to patient's cognitive status. Daughter present and collected collateral information. For about 7 days patient has been a bit more weak, tearful, anxious. Then three days ago noticed more of an acute change in her weakness. Patient three days ago was talking about "tingling in her left hand". Three days ago had a fall and landed on left side. Did not hit her head or lose consciousness. Patient's family desires patient to come home following hospitalization. 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, otherwise unable to perform due to sleepiness and level of alertness Psychiatric: A+Ox3, euthymic affect Results & Data Results & Data ([facility]) Vital Signs (Past 12 Hours) Vital Signs Temp Pulse Pulse Pulse Resp BP BP 01/03/20 07:15 92 H 16 01/03/20 03:58 36.5 C 97 H 18 151/60 H 01/03/20 00:09 100 H 01/03/20 00:02 82 16 01/02/20 23:58 36.8 C 99 H 18 150/51 H 01/02/20 22:07 85 22 152/69 H 01/02/20 20:01 93 H 21 145/90 H BP Pulse Ox 01/03/20 07:15 91 01/03/20 03:58 95 01/03/20 00:09 01/03/20 00:02 161/74 H 92 01/02/20 23:58 93 01/02/20 22:07 92 01/02/20 20:01 94 Resident Activity Tracking Resident Involvement: Resident Care Provided Care Provided: Adult Hospital Medicine (1) Metatarsal stress fracture of left foot Encounter type: initial encounter Qualified Code(s): M84.375A - Stress fracture, left foot, initial encounter for fracture
[2020-01-03] MEDS ORDERED: PERFLUTREN LIPID MICROSPHERE (DEFINITY) IV ONE (08:01)
[2020-01-03 08:04] LABS: Mean Corpuscular Hgb Conc 34.9 g/dL (32-36); Mean Platelet Volume 11.1 fL (7.4-10.4); Platelet Count 155 K/uL (130-400)
[2020-01-03 08:14] LABS: Estimated Average Glucose 171 mg/dl; Hemoglobin A1C 7.6 % (4.5-5.6)
[2020-01-03 08:29] LABS: Hematocrit (blood only) 39.3 % (37-47); Hemoglobin 13.7 g/dL (12.0-16.0); Mean Corpuscular Hemoglobin 31.3 pg (25-34); Mean Corpuscular Volume 89.7 fL (80-100); RDW Coefficient of Variation 12.2 % (11.5-14.5); RDW Standard Deviation 39.3 fL (36.4-46.3); Red Blood Count 4.38 M/uL (4.2-5.4); White Blood Count 18.55 K/uL (4.8-10.8)
[2020-01-03 08:30] LABS: Lymphocytes % (manual) 4.3 %; Monocytes # (manual) 6.55 K/uL (0.11-0.59); Monocytes % (manual) 35.3 %; Neutrophils % (manual) 60.4 %
[2020-01-03 08:36] LABS: BUN Creatinine Ratio 9.2 (10-20); Calcium 9.2 mg/dl (8.5-10.1); Creatinine Clr Calc Pharmacy 57.4 ml/min; Est GFR (African American) 91.9; Est GFR (Non-African American) 79.3; Potassium 3.2 mmol/L (3.5-5.1)
[2020-01-03] MEDS ORDERED: ASPIRIN 81 MG CHEW PO SCH (09:00)
--- NOTE | 2020-01-03 09:27 | Neurology Consultation ---
Date of Consultation January 03, 2020 Assessment & Plan (1) Right middle cerebral artery stroke: Subacute, 7 cm, right frontal lobe infarct with evidence of a high-grade stenosis involving the superior division of the right M2 segment. Patient is unable to voluntarily look left likely due to involvement of the right frontal eye field. She also has a mild to moderate left hemiparesis and an element of left-sided sensorimotor neglect. Surgical intervention is typically not recommended for intracranial stenosis. Given the subacute infarct's moderate size and the patient's relatively advanced age, I would not recommend 3 weeks of dual antiplatelet therapy due to increased bleeding risk. I would, however, recommend switching from daily low-dose aspirin to clopidogrel 75 mg/day for secondary stroke risk reduction. Would continue with atorvastatin. Patient's diabetes appears to need improved control. Permissive hypertension appropriate, systolic blood pressure goal 140 to 160 mmHg acutely. Long-term systolic blood pressure goal closer to 140 mmHg. Consider 30-day cardiac event monitor. Follow-up with echocardiogram results. PT/OT/speech therapy. History of Present Illness Reason for Consultation: Right MCA CVA Requesting Physician: Blair Noguera MD Attending Physician: Jeovany Sheffield DO History of Present Illness The patient is an 84-year-old female with a chief complaint of persistent, left- sided weakness that began 3 days prior to presentation in the emergency department yesterday. She had fallen and injured her left foot and ankle which prompted her medical evaluation. The patient is an unreliable historian. Her daughter is at bedside. In addition to the left-sided weakness she had also been displaying some mild confusion and tearfulness although she does have a history of anxiety for which she takes occasional Lorazepam. A CT of the head revealed a subacute to chronic appearing infarct within the right MCA territory involving the right frontal lobe, measuring 6 cm in size. Stroke risk factors for this patient include diabetes mellitus, hyperlipidemia, and hypertension. She takes daily low-dose aspirin, atorvastatin 20 mg/day, antihypertensives, and glipizide. CT angiography of the head and neck revealed a high-grade stenosis involving the proximal 1 cm of the superior division of the right M2 segment accounting for the suspected right MCA territory infarct. Imaging described in further detail below. Family history noncontributory in light of patient's advanced age. Allergies Allergy/AdvReac Type Severity Reaction Status Date / Time glimepiride Allergy Severe ELEVATED Verified 01/02/20 18:35 B/P TO STROKE-LIKE LEVEL carvedilol [From Coreg] AdvReac Severe HAD EVERY Verified 01/02/20 18:35 SIDE EFFECT MENTIONED. egg AdvReac Intermediate UPSET Verified 01/02/20 18:35 STOMACH metformin AdvReac Intermediate CONSTIPATIO Verified 01/02/20 18:35 N ARTIFICAL SWEETENERS Allergy Intermediate LIPS Uncoded 01/02/20 18:35 BECAME NUMB SALT SUBSTITUTE Allergy Intermediate LIPS Uncoded 01/02/20 18:35 BECAME NUMB Home Medications Home Medications Medication Instructions Recorded Confirmed Type aspirin [Aspir-81] 81 mg PO DAILY 01/02/20 01/02/20 History atenolol 25 mg PO DAILY 01/02/20 01/02/20 History atorvastatin [Lipitor] 20 mg PO HS 01/02/20 01/02/20 History famotidine 20 mg PO DAILY PRN 01/02/20 01/02/20 History glipizide [Glucotrol XL] 2.5 mg PO DAILY 01/02/20 01/02/20 History lisinopril 10 mg PO DAILY 01/02/20 01/02/20 History lorazepam 0.5 mg PO BID PRN 01/02/20 01/02/20 History nitroglycerin [Nitrolingual] 400 mcg SUBLINGUAL DIRECTED PRN 01/02/20 01/02/20 History Patient History Medical History Anxiety CAD (coronary artery disease), [place] coronary artery Diabetes mellitus GERD (gastroesophageal reflux disease) Hyperlipidemia Hypertension Social History Beliefs That Will Affect Care: Adventist Adventist Beliefs: buddhist Current Living Situation: Family Feels Safe at Home: Yes Smoking Status: Never smoker Hx Alcohol Use: No Hx Substance Use: No Review of Systems Constitutional: no fever and no chills Eyes: no blind spots and no diplopia Ear, Nose, Mouth, Throat: no hearing loss Respiratory: no cough and no dyspnea Cardiovascular: no chest pain and no palpitations Gastrointestinal: no nausea and no vomiting Genitourinary: no urinary incontinence Musculoskeletal: no myalgia Integumentary: no rash and no lesions Neurologic: as per Subjective / HPI, + gait abnormality, + localized weakness and + confusion Psychiatric: as per Subjective / HPI and + anxiety Hematologic / Lymphatic: no easy bleeding and no easy bruising Exam (Neuro) Constitutional: well developed and well nourished; no acute distress Eyes: normal visual love by confrontation, PERRL and normal accommodation; + EOM not intact (Patient has difficulty voluntarily looking to the left.), no fundoscopic abnormality, no nystagmus and no papilledema Cardiovascular: Vessels: normal carotid upstroke; no carotid bruit Neurologic: Oriented to:: Person, Place and Time Memory: Short Term Intact and Remote Intact Attention: Span Intact and Concentration Intact Language: Naming Objects and Repeating Phrases Speech Fluency: negative Dysarthria Speech Aphasia: negative Aphasia Fund of Knowledge: Current Events, Past History and Vocabulary Cranial Nerves: Normal II (Visual love full to confrontation, visual acuity normal), V (Facial sensation intact), VII (There is no facial droop or weakness), VIII (Hearing intact), IX, X (Palate elevates to midline), XI (Shoulder shrug intact) and XII (Tongue protrudes to midline); Abnorm III, IV, (Pupils equal round reactive to light and accommodation, patient has difficulty voluntarily looking to the left.) Motor Strength: negative Normal Lower Extremities (Mild left upper extremity weakness noted with a tendency to hold the left upper limb in a moderately flexed posture.), Normal Upper Extremities (Mild to moderate weakness of the left lower extremity noted with a tendency to hold the limb in an externally rotated posture.) and Pronator Drift Motor Tone: Normal Lower Extremities and Normal Upper Extremities Muscle Bulk/Involuntary Movements: No Involuntary Movements; negative Muscle Atrophy Sensation: Light Touch Intact, Pain/Temperature Intact, Vibration Intact and Proprioception Intact Coordination: Finger-Nose Abnormal Laterality: Left and Heel-Hardin Abnormal (Able to perform [id number] on the right, unable to do so with the left lower limb.); negative Normal Deep Tendon Reflexes: Rt Triceps: 2+, Lt Triceps: 2+, Rt Biceps: 2+, Lt Biceps: 2+, Rt Brachioradialis: 2+, Lt Brachioradialis: 2+, Rt Patellar: 2+, Lt Patellar: 2+, Rt Ankle: 2+ and Lt Ankle: 2+ Special Tests: Babinski Present (Upgoing toe on the left noted.) Details: Gait could not be safely tested in the context of patient's current neurological condition. Results & Data ([facility]) Vital Signs (Past 12 Hours) Vital Signs Temp Pulse Pulse Pulse Resp BP BP 01/03/20 07:15 92 H 16 01/03/20 03:58 36.5 C 97 H 18 151/60 H 01/03/20 00:09 100 H 01/03/20 00:02 82 16 01/02/20 23:58 36.8 C 99 H 18 150/51 H 01/02/20 22:07 85 22 152/69 H BP Pulse Ox 01/03/20 07:15 91 01/03/20 03:58 95 01/03/20 00:09 01/03/20 00:02 161/74 H 92 01/02/20 23:58 93 01/02/20 22:07 92 Laboratory Results WBC 18.55, hemoglobin 13.7, hematocrit 39.3, platelet count 155, sodium 132, potassium 3.2, BUN 7, creatinine 0.71, glucose 168, hemoglobin A1c 7.6, triglycerides 50, cholesterol 170, LDL 105, VLDL 10, HDL 55, COVID-[address] PCR negative Diagnostic Findings CT of the head reveals a subacute to chronic right MCA territory infarct involving the right frontal lobe measuring 6 cm in size. There are chronic lacunar infarcts within the left basal ganglia. CT angiography of the head and neck reveal a high-grade stenosis involving the proximal 1 cm of the superior division of the right M2 segment which likely accounts for the suspected right MCA territory infarct. No significant stenosis, occlusion, or dissection identified within the carotid or vertebral arteries. MRI of the brain reveals an acute to subacute right frontal lobe infarct measuring 7 cm in size. I reviewed the images as well as the radiologist's interpretation of these tests. Of note, patient also has a distal fibular fracture as well as transverse fractures of the proximal second and third metatarsals seen on CT of the left foot. An electrocardiogram completed yesterday revealed a normal sinus rhythm, possible left atrial enlargement, left axis deviation, 95 bpm. Electrocardiogram completed this morning reveals a sinus rhythm with occasional PVCs, left axis deviation, left bundle branch block, 89 bpm. Coding Level of Care Code 11321 Initial Inpt Care Lvl 3 Diagnoses Right middle cerebral artery stroke I63.511
[2020-01-03] MEDS: ENOXAPARIN INJ 30 MG/0.3 ML SYR SQ SCH (10:43)
[2020-01-03] MEDS ORDERED: ATENOLOL 25 MG TABLET PO SCH (12:00)
--- NOTE | 2020-01-03 13:27 | XRay Report ---
LEFT ANKLE 3 VIEWS CLINICAL HISTORY: Fibular fracture. FINDINGS: 3 portable views of the left ankle are correlated with radiographs of left tibia and fibula performed 01/02/2020. The skeletal structures are osteopenic. There is a minimally displaced spiral f racture of the distal fibula. Overlying soft tissue edema is noted. The distal tibia appears intact. Near-anatomic alignment is maintained at the ankle joint. 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 Pes planus is observed. A plantar calcaneal enthesophyte is noted. Soft t issue edema is present around the ankle. There is atherosclerotic calcification of the regional arter ies. IMPRESSION: Minimally displaced spiral fracture of the distal fibula as above. Electronically signed by: Clay Rosado M.D. 01/03/2020 1:25 PM
[2020-01-03] MEDS ORDERED: FAMOTIDINE 20 MG TAB PO PRN (14:25)
--- NOTE | 2020-01-03 14:54 | Orthopedic Consultation ---
Date of Consultation January 03, 2020 Assessment & Plan (1) Left fibular fracture: She was seen and examined by Dr. Salvador today as well. We did get x-rays of her ankle today which were then completed by the time of this dictation. The x-rays of the ankle show the distal fibula fracture nondisplaced. 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 We recommend continued conservative management for this. We will get her a low tide walking boot. She only needs this boot for weightbearing/walking. She can weight-bear as tolerated in the boot. Follow up in clinic in 2 weeks. Present on Admission?: Yes (2) Closed fracture of metatarsal of left foot: Present on Admission?: Yes History of Present Illness Reason for Consultation: Left ankle and foot fractures Attending Physician: Jeovany Sheffield, DO History of Present Illness Radha is an 84-year-old female who was admitted with a CVA yesterday. She also has history of heart disease and diabetes, her complete medical history was reviewed in the admission H&P. Her daughter is with her at this time and states that she injured her ankle 2 days ago when she was trying to get to the bedside commode and her knees must have given out and she sort of fell/slid to the ground. She was complaining of some foot pain. X-rays were obtained during this admission and showed metatarsal fractures as well as a distal fibula fracture. She had a CT scan of the foot as well. She complains of left foot pain at this time but has no other musculoskeletal complaints from this fall. She does ambulate with the use of a walker. Allergies Allergy/AdvReac Type Severity Reaction Status Date / Time glimepiride Allergy Severe ELEVATED Verified 01/02/20 18:35 B/P TO STROKE-LIKE LEVEL carvedilol [From Coreg] AdvReac Severe HAD EVERY Verified 01/02/20 18:35 SIDE EFFECT MENTIONED. egg AdvReac Intermediate UPSET Verified 01/02/20 18:35 STOMACH metformin AdvReac Intermediate CONSTIPATIO Verified 01/02/20 18:35 N aspartame AdvReac Unknown Unknown Verified 01/03/20 12:54 sucralose AdvReac Unknown Unknown Verified 01/03/20 12:54 [From Splenda (sucralose)] SALT SUBSTITUTE Allergy Intermediate LIPS Uncoded 01/02/20 18:35 BECAME NUMB Home Medications Home Medications Medication Instructions Recorded Confirmed Type aspirin [Aspir-81] 81 mg PO DAILY 01/02/20 01/02/20 History atenolol 25 mg PO DAILY 01/02/20 01/02/20 History atorvastatin [Lipitor] 20 mg PO HS 01/02/20 01/02/20 History famotidine 20 mg PO DAILY PRN 01/02/20 01/02/20 History glipizide [Glucotrol XL] 2.5 mg PO DAILY 01/02/20 01/02/20 History lisinopril 10 mg PO DAILY 01/02/20 01/02/20 History lorazepam 0.5 mg PO BID PRN 01/02/20 01/02/20 History nitroglycerin [Nitrolingual] 400 mcg SUBLINGUAL DIRECTED PRN 01/02/20 01/02/20 History Patient History Medical History Anxiety CAD (coronary artery disease), [place] coronary artery Diabetes mellitus GERD (gastroesophageal reflux disease) Hyperlipidemia Hypertension Social History Communication Ability: Effective Beliefs That Will Affect Care: Uatsdin Uatsdin Beliefs: holiness Current Living Situation: Family Feels Safe at Home: Yes Smoking Status: Never smoker Hx Alcohol Use: No Hx Substance Use: No Review of Systems Musculoskeletal: as per Subjective / HPI Neurologic: + falls Physical Exam Physical Exam: This is an elderly female in no distress. I was able to wake her and she is alert. On exam of the left foot and ankle she does have some obvious swelling and ecchymosis throughout her foot. She has a valgus alignment to her hindfoot. Skin is intact. She is tender to palpation around the distal fibula and the midfoot area. Some tenderness medially at the ankle as well. Sensation is intact to touch. No tenderness over the proximal tib-fib. Results & Data ([facility]) Vital Signs (Past 12 Hours) Vital Signs Temp Pulse Resp BP BP Pulse Ox 01/03/20 11:14 37.2 C 83 25 H 125/63 92 01/03/20 11:11 84 16 92 01/03/20 07:15 92 H 16 91 01/03/20 03:58 36.5 C 97 H 18 151/60 H 95 Diagnostic Findings X-rays are reviewed of her foot and tib-fib taken here at [facility] as well as the CT scan of her foot. She does have fractures of the s econd and third metatarsals as well as a fracture of the distal fibula just seen on best on the CT scan of the foot. There is an avulsion of the proximal phalanx of her great toe as well. PG Care Time/CCT Total # of Minutes Spent Total Time Spent with Patient: Total time spent is greater than 50% in coordination of care (as documented) at patient's floor/unit and/or counseling patient: Coding Level of Care Code 44385 Initial Inpt Care Lvl 1 Diagnoses Left fibular fracture S82.402A Closed fracture of metatarsal of left foot S92.302A
[2020-01-03] MEDS ORDERED: POTASSIUM CHLORIDE 10 MEQ TABCR PO STA (15:49)
--- NOTE | 2020-01-03 18:46 | XCELERA ---
[id number]
--- NOTE | 2020-01-03 19:12 | Electrocardiogram Report ---
Test Reason : Blood Pressure : / mmHG Vent. Rate : 089 BPM Atrial Rate : 089 BPM P-R Int : 170 ms QRS Dur : 146 ms QT Int : 408 ms P-R-T Axes : 044 -54 083 degrees QTc Int : 496 ms Sinus rhythm with occasional Premature ventricular complexes Left axis deviation Non-specific intra-ventricular conduction delay Abnormal ECG No previous ECGs available Confirmed by Ronn Glez ([id number]) on 01/03/2020 7:12:29 PM Referred By: REFERRED SELF Confirmed By:Ryan Glez
--- NOTE | 2020-01-03 19:19 | Electrocardiogram Report ---
Test Reason : Blood Pressure : / mmHG Vent. Rate : 095 BPM Atrial Rate : 095 BPM P-R Int : 168 ms QRS Dur : 132 ms QT Int : 392 ms P-R-T Axes : 055 -55 073 degrees QTc Int : 492 ms Normal sinus rhythm Possible Left atrial enlargement Left axis deviation Non-specific intra-ventricular conduction delay Abnormal ECG When compared with ECG of 02-JAN-2020 16:53, (unconfirmed) Premature ventricular complexes are no longer Present Confirmed by Ronn Glez ([id number]) on 01/03/2020 7:18:47 PM Referred By: REFERRED SELF Confirmed By:Ryan Glez
[2020-01-03] MEDS ORDERED: LEVOFLOXACIN/D5W 500 MG/100 ML BAG IV SCH (20:00)
[2020-01-03] MEDS: ATORVASTATIN 20 MG TAB PO SCH (20:09)
[2020-01-04] MEDS ORDERED: MIRTAZAPINE TAB 15 MG TAB PO ONE (00:04)
[2020-01-04] MEDS ORDERED: LORazepam 1 MG/2 ML VIAL IV STA (00:41)
[2020-01-04] MEDS ORDERED: LORazepam 2 MG/4 ML VIAL ONE (00:44)
[2020-01-04] MEDS: PIPERACILLIN/TAZOBACTAM 3.375 GM in DEXTROSE 5% 100 ML IV SCH ×2 (02:30→10:21)
--- NOTE | 2020-01-04 05:29 | Communication Note ---
Date of Service: January 04, 2020 Notified by nursing around 12am that patient confused and anxious. Family was requesting "something to help her relax [decrease agitation]." Mirtazapine 15mg PO ordered to avoid any anti-choleringeric sedating medications. Appox 40 minutes later, patient spit Mirtazapine out and was not trusting to take PO medication. Daughter stated patient takes Ativan at night. Ativan 1mg IV ordered. No further acute events reported overnight.
[2020-01-04] MEDS ORDERED: ACETAMINOPHEN 325 MG TAB PO PRN (06:50)
[2020-01-04] MEDS: ALBUT/IPRATROP 3MG/0.5MG NEB 3 ML VIAL NEB SCH ×4 (07:09→19:34)
--- NOTE | 2020-01-04 08:03 | Progress Notes ---
DATE: 01/04/2020 SUBJECTIVE: An 84-year-old female with multiple medical comorbidities, admitted with a stroke with underlying diabetes with a left ankle and several foot fractures. The boot was put on yesterday and it does cause her discomfort when she is in it. No other new complaints. PHYSICAL EXAMINATION: EXTREMITIES: Examination of the left foot reveals the swelling to be improved slightly. She does have bruising in her mid foot area. There is no visible deformity there. 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 She is tender along the fibula, but pretty minimal swelling there. No medial swelling. X-RAYS: X-rays of the ankle were reviewed. They are very poor quality films. Shows a distal fibula fracture. No obvious shifting of the mortise. ASSESSMENT: An 84-year-old white female with multiple medical comorbidities including underlying diabetes with, 1. Left stable Cruz B ankle fracture in a diabetic patient. 2. Left second and third metatarsal base fractures which are stable. PLAN: We are going to have her wear this walking boot when she is walking or weightbearing or doing any transfers. She does not need to have it when she is in bed. I need to follow up in 2 weeks. Once again, she should wear the boot while weightbearing in any fashion for transfers. Does not need to wear it while lying in bed or nonweightbearing. Any orthopedic questions can be directed to me at [phone].
[2020-01-04] MEDS: INSULIN ASPART 100 UNITS/ML 3 ML PEN SC SCH ×4 (08:37→21:02)
[2020-01-04] MEDS: NSS + 20MEQ KCL 20 MEQ/1,000 ML BAG IV SCH ×2 (09:16→16:59)
[2020-01-04 10:18] LABS: BUN Creatinine Ratio 11.7 (10-20); Calcium 8.4 mg/dl (8.5-10.1); Creatinine Clr Calc Pharmacy 83.1 ml/min; Est GFR (African American) 105.2; Est GFR (Non-African American) 90.7; Potassium 3.9 mmol/L (3.5-5.1)
[2020-01-04] MEDS: ENOXAPARIN INJ 30 MG/0.3 ML SYR SQ SCH (10:18)
[2020-01-04 10:19] LABS: Basophils # (auto) 0.01 K/uL (0-0.2); Basophils % (auto) 0.1 %; Hematocrit (blood only) 31.9 % (37-47); Hemoglobin 10.8 g/dL (12.0-16.0); Immature Granulocytes # (auto) 0.04 K/uL (0.00-0.02); Immature Granulocytes % (auto) 0.3 %; Lymphocytes # (auto) 1.23 K/uL (1.2-3.4); Lymphocytes % (auto) 9.7 %; Mean Corpuscular Hemoglobin 30.9 pg (25-34); Mean Corpuscular Hgb Conc 33.9 g/dL (32-36); Mean Corpuscular Volume 91.4 fL (80-100); Monocytes # (auto) 4.82 K/uL (0.11-0.59); Monocytes % (auto) 37.9 %; Neutrophils # (auto) 6.61 K/uL (1.4-6.5); Platelet Count 132 K/uL (130-400); RBC Morphology Unremarkable; RDW Coefficient of Variation 12.8 % (11.5-14.5); RDW Standard Deviation 42.8 fL (36.4-46.3); Red Blood Count 3.49 M/uL (4.2-5.4); White Blood Count 12.71 K/uL (4.8-10.8)
[2020-01-04] MEDS: CLOPIDOGREL BISULFATE 75 MG TAB PO SCH (10:19)
--- NOTE | 2020-01-04 15:13 | Hospitalist Progress Note ---
Date of Service January 04, 2020 Assessment & Plan (1) CVA (cerebral vascular accident): 84 yo F PMHx DM2, HTN, HLD, GERD, anxiety admitted for R frontal lobe acute/subacute CVA, with fall prior to admission causing multiple LLE fractures. Acute/subacute right MCA CVA to right frontal lobe: - CTA head/ neck with right M2 1 cm long high-grade stenosis - CT of head with subacute/chronic right MCA CVA to the right frontal lobe. - MRI w/o contrast showed acute/subacute right frontal lobe infarct. - After Speech evaluation has been cleared for pureed diet while awake and with head of bed elevation. - Hemoglobin A1c: 7.6 on admission. - Fasting lipid panel: total cholesterol 170, LDL 105, HDL 55, TG 50. - PT/OT / Speech continuing while admitted. - Neurology consulted and appreciate recommendations: - discontinue aspirin for Plavix given risk of intracranial hemorrhage. - optimize risk factor control (HLD, HTN, DM2). - Continue atorvastatin 20mg daily. - Echo cancelled for unclear reason. Will reorder. - Patient's family express that their and the patient's wishes are to return h ome following discharge. This is despite discussion that she may benefit more greatly from skilled rehab services. They feel that her cognitive status is much better at home and so they will be more successful with rehab at home. She has 24 supervision by at least one of her daughters. They are in the process of securing a hospital bed. Patient will be stable medically for d/c once services are secured. LLE multiple fractures: - L Foot XR showed 3rd metatarsal fracture. - LLE CT performed which showed L distal fibular fracture, 2nd/3rd metatarsal fractures, and great toe fracture. - Ortho consult placed, appreciate recommendations. - Patient without pain at this time. Can resume PT/OT with care to the LLE in boot. - XR pelvis performed without signs of fracture. - ROM exam of bilateral LE without signs suggestive of hip fracture. Pneumonia of left lower lobe due to infectious organism: - Likely 2/2 aspiration given poor feeding tolerance with Speech therapy. Cleared for pureed diet only when awake with head of bed elevated. - Given likely aspiration event occurring outside of the hospital will d/c Zosyn, start Augmentin 875 BID. - Duonebs every 4 hours while awake and every 2 hours when necessary. - No longer on supplemental oxygen. - COVID-19 PCR testing was negative in the ED. Hypertension: - Allow permissive hypertension. - Resume HTN medications as able after allowing for permissive HTN. This includes home lisinopril. - Atenolol continued given tachycardia to 120s on 01/02. Hyperlipidemia: - Lipid panel performed as above. - Resume atorvastatin 20mg daily. - Will not increase to 40mg daily given due to patient's age she is at increased risk of intracranial bleeding. Diabetes mellitus: - Hgb A1c 7.6 as above. - Hold oral agents. SSI as below: Goal BSG Range: Low 100 mg/dL, High 150_mg/dL Correction Factor: 25 mg/dL/unit INS:CHO Ratio: 1unit per 10 gms CHO consumed BSGs ACHS if eating, q6h if npo - Per Neurology will need tighter BSG control on discharge to prevent further CVA events. Intertrigo: - Nystatin powder to affected area BID. - Suspect this is why the patient is gesturing to her hip area when asked if she has pain. GERD (gastroesophageal reflux disease): - Famotidine 20 mg PO daily. CAD (coronary artery disease), [place] coronary artery: - Normal troponin, and no signs of cardiac involvement. - 2D Echo pending as above. 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: (4) Pneumonia of left lower lobe due to infectious organism: (5) Hypertension: (6) Hyperlipidemia: (7) Diabetes mellitus: (8) GERD (gastroesophageal reflux disease): (9) CAD (coronary artery disease), [place] coronary artery: (10) Anxiety: (11) Left fibular fracture: (12) Metatarsal stress fracture of left foot: (13) COVID-19 ruled out by laboratory testing: Admission and Anticipated Discharge Date Admission Date: January 02, 2020 Supervising Physician Co-Signing Physician Notes I also saw the patient with the resident physician and confirmed basurto portions of history and physical examination. I agree with the impression and plan as noted above. Also personally discussed the case with the home health care case manager. Right middle cerebral artery stroke Neurology consultation appreciated. Inpatient rehabilitation versus home services; family strongly desires services at home. Discussion with case management -I do wonder if the patient would benefit from a short inpatient rehabilitation stint, especially the fact that she has both neurological and orthopedic issues to deal with. Tachycardia Resolved with reduction of home beta-april Left fibular fracture, left metatarsal fracture Orthopedic recommendations appreciated Will need outpatient orthopedic follow-up in 2 weeks Subjective Patient with some agitation and anxiousness overnight. Overnight physician called and prescribed Remeron which the patient spit out stating that she "didn't trust the medicine". She was then given IV Ativan at her home dose and she quickly fell asleep. This morning her daughter is at bedside and provides some history. There are three daughters in the home that live with her and assume her 24/7 care, as they did with their father before he . She is semi-independent of ADLs and walks with a walker in the house. They prefer her to go home with home health PT/OT services as "every time she is admitted anywhere and therefore is not at home she starts to get confused and gets better when she comes home". She states that the patient takes a dose of Ativan at bedtime to help her sleep and has for several years without incident. The patient herself denies pain, shortness of breath. Review of Systems Review of Systems: All systems reviewed & are unremarkable except as noted in Subjective Her daughter does provide some information regarding HPI and review of systems Physical Exam Constitutional: WD/WN, vitals as above Eyes: PERRL, conjunctivae normal, anicteric sclerae ENMT: external ear and nose normal, oropharynx normal Neck: normal visual inspection Respiratory: normal respiratory effort, lungs clear to auscultation Cardiovascular: RRR, no murmur, no edema Gastrointestinal (Abdomen): normal bowel sounds, soft, nontender, no hepatosplenomegaly Musculoskeletal: No pain with internal/external rotation of the femur bilaterally No pelvic instability on exam Skin: Under pannus on R side has macerated, red, moist rash that is tender to palpation. 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) Vital Signs (Past 12 Hours) Vital Signs Temp Pulse Pulse Pulse Resp BP BP 01/04/20 14:50 75 01/04/20 12:10 36.6 C 113 H 16 149/116 H 01/04/20 11:05 91 H 18 01/04/20 08:03 92 H 01/04/20 07:47 37.1 C 79 17 156/77 H 01/04/20 04:07 36.6 C 97 H 22 Pulse Ox 01/04/20 14:50 01/04/20 12:10 93 01/04/20 11:05 95 01/04/20 08:03 01/04/20 07:47 94 01/04/20 04:07 96 Resident Activity Tracking Resident Involvement: Resident Care Provided Care Provided: Adult Hospital Medicine (1) Metatarsal stress fracture of left foot Encounter type: initial encounter Qualified Code(s): M84.375A - Stress fracture, left foot, initial encounter for fracture
[2020-01-04] MEDS ORDERED: LORazepam 0.5 MG TAB PO PRN (16:12)
[2020-01-04] MEDS: AMOXICILLIN/CLAVULANATE 875 MG TAB PO SCH (16:51)
--- NOTE | 2020-01-04 18:59 | Electrocardiogram Report ---
Test Reason : Blood Pressure : / mmHG Vent. Rate : 083 BPM Atrial Rate : 083 BPM P-R Int : 154 ms QRS Dur : 130 ms QT Int : 390 ms P-R-T Axes : 064 -42 047 degrees QTc Int : 458 ms Normal sinus rhythm Left axis deviation Poor R wave progression, consider anterior MO vs. lead placement vs. LVH Abnormal ECG When compared with ECG of 03-JAN-2020 12:05, (unconfirmed) Vent. rate has decreased BY 62 BPM Confirmed by Ronn Glez ([id number]) on 01/04/2020 6:59:27 PM Referred By: REFERRED SELF Confirmed By:Ryan Glez
--- NOTE | 2020-01-04 19:02 | Electrocardiogram Report ---
Test Reason : Blood Pressure : / mmHG Vent. Rate : 145 BPM Atrial Rate : 075 BPM P-R Int : 000 ms QRS Dur : 134 ms QT Int : 370 ms P-R-T Axes : 000 -51 083 degrees QTc Int : 574 ms Supraventricular tachycardia Left axis deviation Left ventricular hypertrophy with QRS widening and repolarization abnormality Abnormal ECG When compared with ECG of 03-JAN-2020 06:44, (unconfirmed) Vent. rate has increased BY 50 BPM Confirmed by Ronn Glez ([id number]) on 01/04/2020 7:02:47 PM Referred By: REFERRED SELF Confirmed By:Ryan Glez
[2020-01-04] MEDS: ATORVASTATIN 20 MG TAB PO SCH (21:01)
[2020-01-04] MEDS: NYSTATIN POWDER 15GM BTL EXT SCH (21:01)
[2020-01-05] MEDS ORDERED: LORazepam 1 MG/2 ML VIAL IV STA ×2 (01:05→05:15)
--- NOTE | 2020-01-05 01:08 | Communication Note ---
Date of Service: January 05, 2020 Reported patient agitation, daughter at bedside requesting Ativan IV. Ativan 0.5mg PO was given earlier, daughter strong advocate for IV dosage. Ativan 1mg IVP ordered.
[2020-01-05] MEDS: NSS + 20MEQ KCL 20 MEQ/1,000 ML BAG IV SCH ×2 (03:26→12:13)
[2020-01-05] MEDS: ALBUT/IPRATROP 3MG/0.5MG NEB 3 ML VIAL NEB SCH ×3 (07:16→15:04)
[2020-01-05] MEDS: ENOXAPARIN INJ 30 MG/0.3 ML SYR SQ SCH (07:35)
[2020-01-05] MEDS: AMOXICILLIN/CLAVULANATE 875 MG TAB PO SCH (07:36)
[2020-01-05] MEDS: CLOPIDOGREL BISULFATE 75 MG TAB PO SCH (07:36)
[2020-01-05] MEDS: NYSTATIN POWDER 15GM BTL EXT SCH (07:36)
[2020-01-05] MEDS: INSULIN ASPART 100 UNITS/ML 3 ML PEN SC SCH ×2 (08:38→12:05)
[2020-01-05] MEDS ORDERED: lisinopriL 10 MG TAB PO SCH (09:00)
[2020-01-05] MEDS ORDERED: ATENOLOL 25 MG TABLET PO SCH (09:00)
[2020-01-05 09:11] LABS: Hematocrit (blood only) 33.5 % (37-47); Hemoglobin 11.4 g/dL (12.0-16.0); Mean Corpuscular Hemoglobin 30.8 pg (25-34); Mean Corpuscular Volume 90.5 fL (80-100); Mean Platelet Volume 10.9 fL (7.4-10.4); Platelet Count 153 K/uL (130-400); RDW Coefficient of Variation 12.4 % (11.5-14.5); RDW Standard Deviation 41.2 fL (36.4-46.3); White Blood Count 11.63 K/uL (4.8-10.8)
[2020-01-05 09:34] LABS: BUN Creatinine Ratio 8.6 (10-20); Calcium 8.3 mg/dl (8.5-10.1); Creatinine Clr Calc Pharmacy 105.3 ml/min; Est GFR (African American) 113.4; Est GFR (Non-African American) 97.8; Potassium 3.6 mmol/L (3.5-5.1)
[2020-01-05 09:57] LABS: Eosinophils # (auto) 0.01 K/uL (0-0.5); Eosinophils % (auto) 0.1 %; Immature Granulocytes # (auto) 0.05 K/uL (0.00-0.02); Immature Granulocytes % (auto) 0.4 %; Lymphocytes # (auto) 1.39 K/uL (1.2-3.4); Monocytes # (auto) 3.95 K/uL (0.11-0.59); Neutrophils # (auto) 6.23 K/uL (1.4-6.5); Neutrophils % (auto) 53.5 %
--- NOTE | 2020-01-05 14:04 | Discharge Summary ---
Date of Service January 05, 2020 Admission HPI Per Admitting Provider The patient is a 84-year-old female who was brought to the emergency department due to family concerns regarding altered mentation, weakness on left side, and a fall with swelling and distortion of left lower extremity. The patient himself is unable to contribute significantly to her review of system or HPI. The daughter who is present, reports that in retrospect, her mother was acting differently over the past several days, being more confused, eating less well, and having difficulty with ambulation. Admission Exam Per Admitting Provider The patient is awake, mildly lethargic, normocephalic and atraumatic, lying in bed and in no acute distress. HEENT--PERRL, EOMI, mucous membranes and oropharynx dry. Neck--supple. No JVD. No bruits. Thyroid normal, trachea midline, no adenopathy. Heart--normal S1 and S2. No murmurs, rubs or gallops. Lungs--decreased breath sounds throughout. No respiratory distress, no accessory muscle use. Abdomen--normal bowel sounds and soft. Nontender. Nondistended. Extremities--RLE normal, LLE with mild edema and tenderness. Dermatologic--normal skin turgor, normal color, no abnormal lymph nodes, no r carolyne. 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 (arm/leg weakness) Distal fibular fracture Transverse fractures of the proximal second and third metatarsals without evidence of subluxation Intra-articular fracture involving the medial base of the proximal phalanx the great toe Discharge Exam Constitutional: WD/WN, vitals as above Eyes: PERRL, conjunctivae normal, anicteric sclerae ENMT: external ear and nose normal, oropharynx normal Neck: normal visual inspection Respiratory: normal respiratory effort, lungs clear to auscultation Cardiovascular: RRR, no murmur, no edema Gastrointestinal (Abdomen): normal bowel sounds, soft, nontender, no hepatosplenomegaly Musculoskeletal: No pain with internal/external rotation of the femur bilaterally; No pelvic instability on exam Skin: Under pannus on R side has macerated, pink, moist rash that is tender to palpation but improved from 01/02 Neurologic: 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 egg AdvReac Intermediate UPSET Verified 01/02/20 18:35 STOMACH metformin AdvReac Intermediate CONSTIPATIO Verified 01/02/20 18:35 N aspartame AdvReac Unknown Unknown Verified 01/03/20 12:54 sucralose AdvReac Unknown Unknown Verified 01/03/20 12:54 [From Splenda (sucralose)] SALT SUBSTITUTE Allergy Intermediate LIPS Uncoded 01/02/20 18:35 BECAME NUMB Consultations 01/02/20 19:27 ED Decision to Admit Stat 01/03/20 00:19 Consult Case Management - Discharge Planning Routine Consult Case Management - Discharge Planning Routine Consult Neurology Routine 01/03/20 10:13 Consult Orthopedic Surgery Routine 01/05/20 06:34 Consult Palliative Care Routine Ordered Studies 01/02/20 17:08 CT angio head w con Stat CT angio neck with con Stat CT head/brain wo con Stat 01/02/20 23:49 CT foot LT wo con Urgent 01/03/20 00:19 MR brain wo con Routine Hospital Course (1) CVA (cerebral vascular accident): 84 yo F PMHx DM2, HTN, HLD, GERD, anxiety admitted for R frontal lobe acute/subacute CVA, with fall prior to admission causing multiple LLE fractures. Acute/subacute right MCA CVA to right frontal lobe: - CT of head with subacute/chronic right MCA CVA to the right frontal lobe. - CTA head/ neck with right M2 1 cm long high-grade stenosis. - MRI w/o contrast showed acute/subacute right frontal lobe infarct. - Cleared by Speech for full liquid and pureed diets. - Hemoglobin A1c: 7.6 on admission. - Fasting lipid panel: total cholesterol 170, LDL 105, HDL 55, TG 50. - Neurology consulted and appreciate recommendations: - discontinue aspirin for Plavix given risk of intracranial hemorrhage. - optimize risk factor control (HLD, HTN, DM2). - Continue atorvastatin 20mg daily. - Patient's family express that their and the patient's wishes are to return home following discharge. This is despite discussion that she may benefit more greatly from skilled rehab services. They feel that her cognitive status is much better at home and so they will be more successful with rehab at home. She has 11/01 supervision by at least one of her daughters. They are in the process of securing a hospital bed. Patient and family seen by Dr. Laird today, POLST form completed and patient will receive palliative care services at the home. - Intermittent confusion while admitted, particularly at nighttimes, likely multifactorial (acute CVA in frontal lobe, delirium due to hospitalization and pneumonia). - Continue home Ativan PRN. Tylenol for hip pain. Zofran for intermittent nausea. LLE multiple fractures: - L Foot XR showed 3rd metatarsal fracture. - LLE CT performed which showed L distal fibular fracture, 2nd/3rd metatarsal fractures, and great toe fracture. - Ortho consult placed, appreciate recommendations. - Can resume home PT/OT with care to the LLE in boot. - XR pelvis performed without signs of fracture. - ROM exam of bilateral LE without signs suggestive of hip fracture. - Tylenol PRN pain. - Should have follow up in about 1 month with Orthopedics to assess LLE. Pneumonia of left lower lobe due to infectious organism: - Likely 2/2 aspiration given poor feeding tolerance with Speech therapy. Cleared for pureed diet only when awake with head of bed elevated. - Given likely aspiration event occurring outside of the hospital will d/c Zosyn, Augmentin course prescribed for outpatient. - No longer on supplemental oxygen. - COVID-19 PCR testing was negative in the ED. Hypertension: - Allowed for permissive hypertension in the acute CVA period. - Resume home HTN medications, including atenolol. Hyperlipidemia: - Lipid panel performed as above. - Resume atorvastatin 20mg daily. - Will not increase to 40mg daily given due to patient's age she is at increased risk of intracranial bleeding. Diabetes mellitus: - Hgb A1c 7.6 as above. - Per Neurology will need tighter BSG control on discharge to prevent further CVA events. - Can resume home DM2 regimen, discussed instead with family adjusting diet to better control BSG. Intertrigo: - Nystatin powder to affected area BID prescribed. GERD (gastroesophageal reflux disease): - Famotidine 20 mg PO daily. CAD (coronary artery disease), platinum coronary artery: - Normal troponin, and no signs of cardiac involvement. - Resume home medications. 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: (4) Pneumonia of left lower lobe due to infectious organism: (5) Hypertension: (6) Hyperlipidemia: (7) Diabetes mellitus: (8) GERD (gastroesophageal reflux disease): (9) CAD (coronary artery disease), platinum coronary artery: (10) Anxiety: (11) Left fibular fracture: (12) Metatarsal stress fracture of left foot: (13) COVID-19 ruled out by laboratory testing: Total Time Total Time Spent Total Time Spent (In Minutes): see attending attestation Discharge Plan Discharge Items Patient Disposition: Home - Home Health Services Reason For Visit: R MCA CVA,ASPIRATION PNEUMONIA Discharge Diagnosis: Left Ankle Fracture Left 2nd and 3rd Metatarsal Fractures Left sided stroke Activity: Per Instructions section Activity Comment: May weight bear in the boot. Does not need to wear the boot in bed Weightbearing: Full weightbearing Weightbearing Comment: May weightbear as tolerated in the boot.Should have boot on for all walking Non-emergency contact: Primary Care Provider Call non-emergency contact if: you have any medication questions, your symptoms worsen and your temperature is above 101 Follow-up/Referrals: Cem Salvador MD [Physician] - (Orthopedic follow-up 2-3 weeks from INJURY date.) Sondra Ta DO [Resident] - (If you desire an appointment, you can call Dr. Ta's office at the above number for an appointment for follow up.) PCP,NO [Primary Care Provider] - Diet: Carb Consistent or DM2 Addtl Attending Provider Instructions: Your mom was admitted to the hospital for weakness and a fall. She was found to have a stroke on the right side of her brain, which affected her strength on the left side of her body. Our Neurologists saw her and recommended STOPPING her aspirin and instead STARTING Plavix, a different blood thinning medication. She will CONTINUE all of her OTHER medications from home including her cholesterol medicine and her diabetic medicines. She will have services come to the house for strengthening. She should have a follow up with her primary care doctor in 1 week following discharge. You can continue her Ativan for anxiety if it is helpful. For pain you can try Tylenol, up to 1000 milligrams every 8 hours as needed. I have also sent in for some Zofran medication (also called ondansetron) for nausea to be used only as needed. Lastly, I sent a nystatin powder medicine for her groin rash. The new prescriptions have been sent to [facility] in [place]. For her lung infection, I have sent Augmentin (an antibiotic) into the pharmacy. She will take that once every 12 hours until the prescription is completed. For her left leg fractures, she can bear weight as tolerated in the boot. She does not need to wear the boot in bed or while not-weightbearing. I have ordered necessary home medical equipment including a hospital bed, bedside commode, Casie Lift and transport chair. We have submitted her POLST form into our chart and have changed her code status per your and her wishes to DNR. You will have Palliative care services in the house. You will be contacted about this. You can call my (Dr. Ta's) office at [phone] to schedule an appointment to come in for a follow up. At that time you can discuss if we can do a home health visit. You should try to have follow up with a doctor in about a week. You should call the Orthopedic office for follow up in 2-4 weeks to check on her leg fractures. If you have any trouble breathing, chest pain, changes in status, and need to seek urgent attention please call [phone]. Pending Studies at Discharge: No Stand-Alone Forms: Medications to Prevent Stroke, [facility], Smoking Cessation Medications and DC Order Prescriptions: New clopidogrel 75 mg Tablet 75 mg PO QAM 30 Days Qty: 30 RF: 0 nystatin [Nystop] 100,000 unit/gram Powder 1 applic EXT BID 30 Days Qty: 30 RF: 0 amoxicillin-pot clavulanate [Augmentin] 875-125 mg Tablet 1 tab PO BIDM 5 Days Qty: 10 RF: 0 ondansetron HCl 4 mg tablet 4 mg PO HS PRN (Reason: nausea and vomiting) 1 Days Qty: 1 RF: 0 Continued atorvastatin [Lipitor] 20 mg Tablet 20 mg PO HS RF: 0 atenolol 25 mg Tablet 25 mg PO DAILY RF: 0 famotidine 20 mg Tablet 20 mg PO DAILY PRN (Reason: Indigestion) RF: 0 lorazepam 0.5 mg Tablet 0.5 mg PO BID PRN (Reason: Anxiety) RF: 0 glipizide [Glucotrol XL] 2.5 mg Tablet Extended Release 24hr 2.5 mg PO DAILY RF: 0 lisinopril 10 mg Tablet 10 mg PO DAILY RF: 0 nitroglycerin [Nitrolingual] 400 mcg/spray Rocky,Non-Aerosol 400 mcg sublingual DIRECTED PRN (Reason: Chest Pain) RF: 0 Discontinued aspirin [Aspir-81] 81 mg Tablet,Delayed Release (Dr/Ec) 81 mg PO DAILY RF: 0 Discharge Orders: Discharge Order (Routine); Ordered 01/05/20 Ordered By: Sondra Ta Admission Data Admit Date/Time: 01/02/20 21:43 Attending Provider: Boaz Hall Admit Provider: Blari Noguera Primary Care Provider: PCP,NO Other Providers: Blair Noguera ; Robert Lamb ; Barry Hong ; Millie Laird Other Interventions: Discharge Summary Assessment (RN) Last Done: 01/05/20 16:48 DC Date/Time DO NOT enter until pt leaves facility: 01/05/20 16:51 Supervising Physician Co-Signing Physician Notes Patient seen and examined with PGY-2 Dr. Ta. Agree with history, exam findings, assessment and plan of care. In brief, Ms Law is an 84 year old female with hx of DMe, HTN, HLD, GERD, anxiety admitted with acute/subacute CVA in the frontal lobe (right MCA). Today, she is sleeping and conversation took place with our team and her 3 daughters regarding goals of care and discharge planning. Overnight, she was agitated and received ativan x2. Per family, she seems to do better with tylenol right now. She is not always able to verbalize if she is having pain. 1. CVA. Infarct in the right MCA territory. PT/OT/Speech. Switched from ASA to plavix. Continue to maximize medical management. 2. Left Cruz B fracture with 2nd and 3rd metatarsal fracture. Seen by ortho. WBAT with CAM boot. follow up ortho in 2 weeks for fracture mangaement. 3. LLL asp pneumonia. Off O2. Switched from zosyn to augmentin. Other chronic issues are stable and home medications continued. I personally spent 60 minutes discharge planning for this patient. Resident Activity Tracking Resident Involvement: Resident Care Provided Care Provided: Adult Hospital Medicine
[2020-01-05] MEDS ORDERED: STROKE PATIENT DISCHARGE STA (15:01)
--- NOTE | 2020-01-05 15:03 | Palliative Care Consultation ---
Date of Consultation January 05, 2020 Assessment & Plan (1) Goals of care, counseling/discussion: Patient is an 84-year-old female with a past medical history of CAD, diabetes-A1c 7.6, hypertension and HLD who was brought to the emergency room by her family on 01/01 for several days of increased weakness. Patient did have a fall at home and injured her left foot. In the emergency room patient had a CT scan of the head that showed a subacute/chronic 7 cm CVA in the right frontal lobe, further evaluation showed a significant right carotid stenosis, UA was negative, chest x-ray showed left lower lobe opacity-questionable atelectasis. Patient had x-rays of her right foot which showed a distal spiral fibular fracture as well as metatarsal stress fractures. Patient was admitted, evaluated by neurology-patient's aspirin was switched to Plavix, due to moderate size of her stroke and her age-anticoagulation was not recommended. -Met with 2 of her 3 daughters at bedside, Dyllan and Aida. Her third daughter, Sailaja, is at home to receive delivery of a hospital bed. -Daughters report patient was showing some increased weakness and slow decline- started using a walker to ambulate approximately 2 to 3 weeks ago. -Patient's 3 daughters live with her, none are , there are no gr andchildren. -Discussed patient's prior stated goals, reviewed details of resuscitation- daughters agree that patient would not want to be resuscitated-CODE STATUS changed to DNR. -Discussed purpose and use of POLST form, completed with both daughters, original given back to family. Patient is a DNR, with limited interventions, patient has stated in the past she would not want a feeding tube. 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 -Patient with some improvement in her left-sided weakness-expect her to continue to improve at home. Did discuss with the daughters possible of recurrent strokes as well as recurrent aspiration-discussed at length possible treatments and interventions including transition to hospice at home. (2) CVA (cerebral vascular accident): Plan is to return home with in-home therapies (3) Stenosis of right middle cerebral artery: Not a surgical candidate, continue Plavix in place of aspirin (4) Diabetes mellitus: A1c 7.6-good control given patient's age (5) Left fibular fracture: Pain control, has boot at bedside (6) Dysphagia: On pured diet-would benefit from SUEDING AND BUFFING MACHINE OPERATOR at home History of Present Illness Reason for Consultation: Address CODE STATUS as well as goals of care Requesting Physician: Dr. Sondra Ta Attending Physician: Boaz Hall, History of Present Illness Patient is an 84-year-old female with a past medical history of CAD, diabetes- A1c 7.6, hypertension and HLD who was brought to the emergency room by her family on 01/01 for several days of increased weakness. Patient did have a fall at home and injured her left foot. In the emergency room patient had a CT scan of the head that showed a subacute/chronic 7 cm CVA in the right frontal lobe, further evaluation showed a significant right carotid stenosis, UA was negative, chest x-ray showed left lower lobe opacity-questionable atelectasis. Patient had x-rays of her right foot which showed a distal spiral fibular fracture as well as metatarsal stress fractures. Patient was admitted, evaluated by neurology-patient's aspirin was switched to Plavix, due to moderate size of her stroke and her age-anticoagulation was not recommended. -Met with 2 of her 3 daughters at bedside, Dyllan and Aida. Her third daughter, Sailaja, is at home to receive delivery of a hospital bed. -Daughters report patient was showing some increased weakness and slow decline- started using a walker to ambulate approximately 2 to 3 weeks ago. -Patient's 3 daughters live with her, none are , there are no grandchildren. -Discussed patient's prior stated goals, reviewed details of resuscitation- daughters agree that patient would not want to be resuscitated-CODE STATUS changed to DNR. -Discussed purpose and use of POLST form, completed with both daughters, original given back to family. Patient is a DNR, with limited interventions, patient has stated in the past she would not want a feeding tube. 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 -Patient with some improvement in her left-sided weakness-expect her to continue to improve at home. Did discuss with the daughters possible of recurrent strokes as well as recurrent aspiration-discussed at length possible treatments and interventions including transition to hospice at home. -Goal is to have patient return home today, hospital bed ordered. Patient is referred for home health and home therapies. Allergies Allergy/AdvReac Type Severity Reaction Status Date / Time glimepiride Allergy Severe ELEVATED Verified 01/02/20 18:35 B/P TO STROKE-LIKE LEVEL carvedilol [From Coreg] AdvReac Severe HAD EVERY Verified 01/02/20 18:35 SIDE EFFECT MENTIONED. egg AdvReac Intermediate UPSET Verified 01/02/20 18:35 STOMACH metformin AdvReac Intermediate CONSTIPATIO Verified 01/02/20 18:35 N aspartame AdvReac Unknown Unknown Verified 01/03/20 12:54 sucralose AdvReac Unknown Unknown Verified 01/03/20 12:54 [From Splenda (sucralose)] SALT SUBSTITUTE Allergy Intermediate LIPS Uncoded 01/02/20 18:35 BECAME NUMB Home Medications Home Medications Medication Instructions Recorded Confirmed Type aspirin [Aspir-81] 81 mg PO DAILY 01/02/20 01/02/20 History atenolol 25 mg PO DAILY 01/02/20 01/02/20 History atorvastatin [Lipitor] 20 mg PO HS 01/02/20 01/02/20 History famotidine 20 mg PO DAILY PRN 01/02/20 01/02/20 History glipizide [Glucotrol XL] 2.5 mg PO DAILY 01/02/20 01/02/20 History lisinopril 10 mg PO DAILY 01/02/20 01/02/20 History lorazepam 0.5 mg PO BID PRN 01/02/20 01/02/20 History nitroglycerin [Nitrolingual] 400 mcg SUBLINGUAL DIRECTED PRN 01/02/20 01/02/20 History amoxicillin-pot clavulanate 1 tab PO BIDM 5 Days #10 tab 01/05/20 Rx [Augmentin] clopidogrel 75 mg PO QAM 30 Days #30 tab 01/05/20 Rx nystatin [Nystop] 1 applic EXT BID 30 Days #30 gm 01/05/20 Rx ondansetron HCl 4 mg PO HS PRN 1 Days #1 tab 01/05/20 Rx Patient History Medical History Anxiety CAD (coronary artery disease), [place] coronary artery Diabetes mellitus GERD (gastroesophageal reflux disease) Hyperlipidemia Hypertension Social History Communication Ability: Effective Beliefs That Will Affect Care: Orthodox Orthodox Beliefs: holiness Current Living Situation: Family Feels Safe at Home: Yes Smoking Status: Never smoker Hx Alcohol Use: No Hx Substance Use: No Review of Systems Review of Systems: Unobtainable due to cognitive status Physical Exam Physical Exam: PE: Patient did not arouse to voice or touch, appears comfortable HEENT: Moist mucous membranes Respirations: Unlabored, breath sounds bilaterally CV: Tachycardic Abdomen: Soft, no grimace with palpation Extremities: Right foot with extensive bruising Neuro: Did not respond to voice or touch, daughters report she is moving her left side more. Results & Data Vital Signs (Past 12 Hours) Vital Signs Temp Pulse Pulse Pulse Pulse Resp BP 01/05/20 14:11 98.6 F 89 107 H 82 20 156/77 H 01/05/20 11:34 98.6 F 89 20 01/05/20 07:29 98.4 F 127 H 18 01/05/20 07:13 134 H 01/05/20 04:35 01/05/20 04:23 98.4 F 107 H 20 BP Pulse Ox 01/05/20 14:11 157/85 H 95 01/05/20 11:34 157/85 H 95 01/05/20 07:29 191/106 H 93 01/05/20 07:13 01/05/20 04:35 182/81 H 01/05/20 04:23 95 PG Care Time/CCT Total # of Minutes Spent Total Time Spent with Patient: Total time spent 90 minutes with greater than 50% of the time spent at bedside discussing goals of care as well as completing a POLST form as well as counseling family regarding disease progression. Collaborated with resident physician on unit. Coding Level of Care Code 00310 Inpt Consult Level 3 Diagnoses Goals of care, counseling/discussion Z71.89 CVA (cerebral vascular accident) I63.9 Stenosis of right middle cerebral artery I66.01 Diabetes mellitus E11.9 Left fibular fracture S82.402A Dysphagia R13.10 Time Spent (min) 90
--- NOTE | 2020-01-05 15:48 | Pharmacy Report ---
Pharmacist Stroke Counseling - Date of Service January 05, 2020 - Scope: Pharmacy has been consulted to provide medication discharge counseling for this patient admitted with ischemic stroke as per the Pharmacist Discharge Counseling for Stroke Patients Protocol. - Medications on Discharge: Home Medications Medication Instructions Recorded Confirmed aspirin [Aspir-81] 81 mg PO DAILY 01/02/20 01/02/20 atenolol 25 mg PO DAILY 01/02/20 01/02/20 atorvastatin [Lipitor] 20 mg PO HS 01/02/20 01/02/20 famotidine 20 mg PO DAILY PRN 01/02/20 01/02/20 glipizide [Glucotrol XL] 2.5 mg PO DAILY 01/02/20 01/02/20 lisinopril 10 mg PO DAILY 01/02/20 01/02/20 lorazepam 0.5 mg PO BID PRN 01/02/20 01/02/20 nitroglycerin [Nitrolingual] 400 mcg SUBLINGUAL DIRECTED PRN 01/02/20 01/02/20 New Rx's Medication Instructions Recorded amoxicillin-pot clavulanate 1 tab PO BIDM 5 Days #10 tab 01/05/20 [Augmentin] clopidogrel 75 mg PO QAM 30 Days #30 tab 01/05/20 nystatin [Nystop] 1 applic EXT BID 30 Days #30 gm 01/05/20 ondansetron HCl 4 mg PO HS PRN 1 Days #1 tab 01/05/20 - Action: The above medications, specifically ones for stroke treatment/prophylaxis, have been reviewed in detail with the patient sales representative door to door prior to discharge. This includes indication, common adverse reactions, drug interactions, and medication administration. Medication counseling has been employed using the teach-back method to ensure understanding. - Outcome: The patient sales representative door to door has demonstrated understanding of the medications. Additional comments: - Stroke discharge counseling was completed via telephone secondary to the COVID-19 pandemic - Stroke discharge counseling was provided to patient's daughterAida - Daughter was given time to have any/all questions answered Thank you for allowing pharmacy to be involved in the care of this patient. Please call [phone] with any additional questions
== END 2020-01-05 16:51 | disposition home health service (06) | DRG 64 ==
LOC: ED 16:42 → SUATTDRO 21:43 → 2E 21:43